=== PATIENT | female | born 1995 | race Caucasian/White ===

== ENCOUNTER → 2019-05-03 | Outpatient (CLI) | payer OTHER, SELFPAY ==
[2019-05-03 09:42] VITALS: BMI 29.3
[2019-05-05 12:42] LABS: HPV Reflexed? NOT INDICATED
== END | disposition home or self-care (01) ==
LOC: LABSPEC 13:23
PROVIDERS: Referring Provider Nurse Practitioner Women's Health; Visit Provider Nurse Practitioner Women's Health
DX: Z12.4 Encounter for screening for malignant neoplasm of cervix (principal)
CPT/HCPCS: 87624; 88175; G0145

== ENCOUNTER → 2019-08-17 | Outpatient (CLI) | payer OTHER, SELFPAY ==
[2019-08-17 13:22] VITALS: BMI 29.3
[2019-08-17 14:55] LABS: Absolute Lymphocyte Count 1.94 X10^3/uL (0.83-4.51); Absolute Neutrophil Count 5.6 X10^3/uL (2.0-7.7); Basophil# 0.02 X10^3/uL; Basophil% 0.2 % (0-1); Eosinophils% 1.2 % (0-5); Hematocrit 38.1 % (37-47); Hemoglobin 13.4 g/dL (12.0-15.0); Lymphocyte # 1.94 X10^3/ul (4.0); Lymphocyte % 23.2 % (19-41); Mean Corp Hgb Conc 35.2 g/dL (32-36); Mean Corpuscular Hgb 30.5 pg (27.0-32.0); Mean Corpuscular Volume 86.8 fL (81-99); Mean Platelet Vol. 10.4 fl (6.2-12.0); Monocyte# 0.68 X10^3/uL; Monocyte% 8.1 % (0-10); NRBC Flagged by Analyzer 0 % (0-5); Neutrophil # 5.57 X10^3/uL (2.7-7.7); Neutrophil % 66.8 % (47-70); Platelet Count 353 K/mm3 (150-450); RBC Distribution Width CV 11.9 % (11.6-14.6); RBC Distribution Width SD 38.5 fl (35.1-43.9); Red Blood Count 4.39 M/mm3 (4.2-5.4); White Blood Count 8.4 K/mm3 (4.4-11.0)
[2019-08-17 17:55] LABS: Chlamydia Trachomatis by PCR Negative (Negative); Neisserai gonorrhoeae by PCR Negative (Negative); Probe Check PASS; Sample Adequacy Control PASS; Specimen Processing Control PASS
[2019-08-18 02:21] LABS: Rapid Plasmin Reagin (RPR) NONREACTIVE (NONREACTIVE)
[2019-08-18 11:06] LABS: HIV - WCH Non-Reactive (Nonreactive); Hepatitis B Surface Antigen Non-Reactive (Nonreactive); Rubella IgG 194.8 IU/mL
== END | disposition home or self-care (01) ==
LOC: LAB 14:13
PROVIDERS: Referring Provider Nurse Practitioner Women's Health; Visit Provider Nurse Practitioner Women's Health
DX: Z34.90 Encounter for supervision of normal pregnancy, unspecified, unspecified trimester (principal)
CPT/HCPCS: 36415; 85025; 86592; 86703; 86762; 86850; 86900; 86901; 87086; 87088; 87340; 87491; 87591

== ENCOUNTER → 2019-09-13 14:00 | Outpatient (CLI) | payer OTHER, SELFPAY ==
[2019-09-13 13:36] VITALS: BMI 29.3
== END ==
PROVIDERS: Referring Provider Nurse Practitioner Women's Health; Visit Provider Nurse Practitioner Women's Health
DX: Z34.81 Encounter for supervision of other normal pregnancy, first trimester (principal)
CPT/HCPCS: 36415

== ENCOUNTER → 2019-11-04 16:32 | Outpatient (CLI) | payer OTHER, SELFPAY ==
[2019-11-04 15:38] VITALS: BMI 31.7
== END ==
PROVIDERS: Referring Provider Obstetrics & Gynecology; Visit Provider Obstetrics & Gynecology
DX: O26.899 Other specified pregnancy related conditions, unspecified trimester (principal); R10.9 Unspecified abdominal pain; Z3A.00 Weeks of gestation of pregnancy not specified
CPT/HCPCS: 87086; 87088

== ENCOUNTER → 2019-11-11 12:00 | Outpatient (CLI) | payer OTHER, SELFPAY ==
[2019-10-10 08:23] VITALS: BMI 29.3
[2019-11-04 15:38] VITALS: BMI 31.7
--- NOTE | 2019-11-11 12:01 | US_ITS ---
STUDY: SECOND AND THIRD TRIMESTER OBSTETRICAL ULTRASOUND REASON FOR EXAM: Female, 24 years old anatomy LMP: June 26, 2019. TECHNIQUE: Transabdominal TECHNICAL QUALITY: Adequate. PRIOR ULTRASOUND: None. FINDINGS: There is a single intrauterine fetus. The fetus is in a breech presentation. There is demonstrated cardiac activity with a heart rate of 137 bpm. There is a normal amniotic fluid volume. The largest amniotic fluid pocket measures 8.5 cm x 3.7 cm. The amniotic fluid index (TASHA) is is within normal limits. The placenta is anterior in location and is not low lying. There are Grade 0 placental changes. The cervix measures 4.6 cm in length. The bilateral adnexal regions are normal. BIOMETRY: BPD: 4.51 cm: 19 weeks, 4 days HC: 17.96 cm: 20 weeks, 2 days AC: 16.23 cm: 21 weeks, 2 days FL: 3.2 cm: 19 weeks, 6 days CI: 70% FL/BPD: 71% FL/HC: FL/AC: 20% HC/AC: 1.11 age by current US: 20 weeks, 0 days. IGNACIO by current US: March 30, 2020. Estimated weight: 366 grams, +/- 54 grams, 89 %. Age by LMP: 19 weeks, 4 days. IGNACIO by LMP: April 02, 2020. ANATOMY: Gender: Male Cranium: Normal lateral ventricles. Normal choroid plexus. Normal cerebellum. Normal cisterna magna. Normal face, nose and lips. Chest: Normal 4-chamber heart. Abdomen/Pelvis: Normal diaphragm. Normal stomach. Normal abdominal wall. Normal cord insertion. Normal 3 vessel cord. Left renal fullness. This measures 2 mm. This is within normal limits. Normal bladder. Spine: Normal cervical spine. Normal thoracic spine. Normal lumbar spine. Normal sacrum. Extremities: Normal bilateral upper extremities. Normal bilateral lower extremities. US/OB Anatomy Scan IMPRESSION: Single live intrauterine gestation with a mean gestational age of 20 weeks. Electronically Signed: Corby Murillo at 8:33 EST , Service support ,
== END ==
PROVIDERS: Referring Provider Obstetrics & Gynecology; Visit Provider Obstetrics & Gynecology
DX: Z34.90 Encounter for supervision of normal pregnancy, unspecified, unspecified trimester (principal)
CPT/HCPCS: 76805

== ENCOUNTER → 2020-01-02 11:42 | Outpatient (CLI) | payer OTHER, SELFPAY ==
[2020-01-02 11:07] VITALS: BMI 31.7
[2020-01-02 12:32] LABS: Absolute Lymphocyte Count 1.47 X10^3/uL (0.83-4.51); Absolute Neutrophil Count 8.2 X10^3/uL (2.0-7.7); Basophil# 0.01 X10^3/uL; Basophil% 0.1 % (0-1); Eosinophil# 0.08 X10^3/uL; Eosinophils% 0.8 % (0-5); Hematocrit 31.9 % (37-47); Hemoglobin 10.6 g/dL (12.0-15.0); Lymphocyte # 1.47 X10^3/ul (4.0); Lymphocyte % 14.1 % (19-41); Mean Corp Hgb Conc 33.2 g/dL (32-36); Mean Corpuscular Hgb 29.8 pg (27.0-32.0); Mean Corpuscular Volume 89.6 fL (81-99); Mean Platelet Vol. 10.5 fl (6.2-12.0); Monocyte# 0.54 X10^3/uL; Monocyte% 5.2 % (0-10); NRBC Flagged by Analyzer 0 % (0-5); Neutrophil # 8.23 X10^3/uL (2.7-7.7); Platelet Count 267 K/mm3 (150-450); RBC Distribution Width CV 12.3 % (11.6-14.6); RBC Distribution Width SD 40.4 fl (35.1-43.9); Red Blood Count 3.56 M/mm3 (4.2-5.4); White Blood Count 10.4 K/mm3 (4.4-11.0)
[2020-01-02 13:02] LABS: Glucose Challenge Gest 1H 50g 130 mg/dL (70-140)
== END ==
PROVIDERS: Referring Provider Obstetrics & Gynecology; Visit Provider Obstetrics & Gynecology
DX: Z3A.27 27 weeks gestation of pregnancy (principal)
CPT/HCPCS: 36415; 82950; 85025

== ENCOUNTER → 2020-02-08 12:18 | Outpatient (CLI) | payer OTHER, SELFPAY ==
[2020-02-08 10:59] VITALS: BMI 31.7
[2020-02-08 12:34] LABS: Absolute Lymphocyte Count 1.62 X10^3/uL (0.83-4.51); Absolute Neutrophil Count 8.6 X10^3/uL (2.0-7.7); Basophil# 0.02 X10^3/uL; Basophil% 0.2 % (0-1); Eosinophil# 0.08 X10^3/uL; Eosinophils% 0.7 % (0-5); Hematocrit 34.3 % (37-47); Hemoglobin 11.6 g/dL (12.0-15.0); Lymphocyte # 1.62 X10^3/ul (4.0); Lymphocyte % 14.2 % (19-41); Mean Corp Hgb Conc 33.8 g/dL (32-36); Mean Corpuscular Hgb 30.5 pg (27.0-32.0); Mean Corpuscular Volume 90.3 fL (81-99); Mean Platelet Vol. 10.5 fl (6.2-12.0); Monocyte% 7.9 % (0-10); NRBC Flagged by Analyzer 0 % (0-5); Neutrophil # 8.61 X10^3/uL (2.7-7.7); Neutrophil % 75.7 % (47-70); Platelet Count 289 K/mm3 (150-450); RBC Distribution Width CV 13.1 % (11.6-14.6); RBC Distribution Width SD 42.9 fl (35.1-43.9); White Blood Count 11.4 K/mm3 (4.4-11.0)
== END ==
PROVIDERS: Referring Provider Obstetrics & Gynecology; Visit Provider Obstetrics & Gynecology
DX: O99.019 Anemia complicating pregnancy, unspecified trimester (principal); Z3A.00 Weeks of gestation of pregnancy not specified
CPT/HCPCS: 36415; 85025

== ENCOUNTER → 2020-03-09 12:20 | Outpatient (CLI) | payer OTHER, SELFPAY ==
[2020-03-09 12:05] VITALS: BMI 31.7
[2020-03-09 12:49] LABS: Absolute Lymphocyte Count 1.43 X10^3/uL (0.83-4.51); Absolute Neutrophil Count 6.8 X10^3/uL (2.0-7.7); Basophil# 0.01 X10^3/uL; Basophil% 0.1 % (0-1); Eosinophil# 0.07 X10^3/uL; Eosinophils% 0.8 % (0-5); Hematocrit 35.6 % (37-47); Hemoglobin 11.8 g/dL (12.0-15.0); Lymphocyte # 1.43 X10^3/ul (4.0); Lymphocyte % 15.7 % (19-41); Mean Corp Hgb Conc 33.1 g/dL (32-36); Mean Corpuscular Hgb 29.7 pg (27.0-32.0); Mean Corpuscular Volume 89.7 fL (81-99); Mean Platelet Vol. 10.6 fl (6.2-12.0); Monocyte# 0.67 X10^3/uL; Monocyte% 7.4 % (0-10); NRBC Flagged by Analyzer 0 % (0-5); Neutrophil # 6.83 X10^3/uL (2.7-7.7); Platelet Count 281 K/mm3 (150-450); RBC Distribution Width CV 13.2 % (11.6-14.6); RBC Distribution Width SD 43.3 fl (35.1-43.9); Red Blood Count 3.97 M/mm3 (4.2-5.4); White Blood Count 9.1 K/mm3 (4.4-11.0)
== END ==
PROVIDERS: Referring Provider Obstetrics & Gynecology; Visit Provider Obstetrics & Gynecology
DX: O99.019 Anemia complicating pregnancy, unspecified trimester (principal); Z3A.00 Weeks of gestation of pregnancy not specified
CPT/HCPCS: 36415; 85025; 87081

== ENCOUNTER 2020-04-01 07:40 | Outpatient (CLI) | payer OTHER, SELFPAY ==
[2020-03-29 10:54] VITALS: BMI 37.2
--- NOTE | 2020-04-01 14:35 | OB.TRI.PN ---
Progress Notes Date of Service: 04/01/20 Progress Note: Patient presents for triage evaluation secondary to false labor FHT: 130 moderate variability reactive no decelerations category I tracing [place]: 4-8min contractions Assessment and plan: False labor no cervical change reactive NST, reassuring maternal and status patient discharged to home to follow-up scheduled. See problem list details for additional plan information. Multi Select Codes - Urinary/Genital Urinary/Genital CPT Codes: 50337-14 non-stress test Interp
[2020-04-01 18:15] VITALS: BP 137/86; PULSE 83
== END 2020-04-01 11:20 | disposition home or self-care (01) ==
LOC: WPOUT 08:15 → OBT 08:15
PROVIDERS: Visit Provider Obstetrics & Gynecology
DX: O47.9 False labor, unspecified (principal)
CPT/HCPCS: 59025; 59050; 99218; G0378

== ENCOUNTER 2020-04-01 18:20 | Inpatient (IN) | payer OTHER, SELFPAY ==
[2020-02-08 10:59] VITALS: BMI 31.7
[2020-03-29 10:54] VITALS: BMI 37.2
[2020-04-01] VITALS (27 sets, daily range): BP systolic 106–143; BP diastolic 58–84; PULSE 61–100; TEMP 36.2–37.1; O2SAT 96–100; BMI 37.2
[2020-04-01] MEDS: Lactated Ringers 1,000 ML 999 ML IV (18:35)
[2020-04-01 19:07] LABS: Absolute Lymphocyte Count 1.07 X10^3/uL (0.83-4.51); Absolute Neutrophil Count 13.6 X10^3/uL (2.0-7.7); Basophil# 0.02 X10^3/uL; Basophil% 0.1 % (0-1); Eosinophil# 0.01 X10^3/uL; Eosinophils% 0.1 % (0-5); Hematocrit 36.1 % (37-47); Hemoglobin 12.2 g/dL (12.0-15.0); Lymphocyte # 1.07 X10^3/ul (4.0); Lymphocyte % 6.8 % (19-41); Mean Corp Hgb Conc 33.8 g/dL (32-36); Mean Corpuscular Hgb 30.3 pg (27.0-32.0); Mean Corpuscular Volume 89.6 fL (81-99); Mean Platelet Vol. 11.1 fl (6.2-12.0); Monocyte# 0.86 X10^3/uL; Monocyte% 5.5 % (0-10); NRBC Flagged by Analyzer 0 % (0-5); Platelet Count 281 K/mm3 (150-450); RBC Distribution Width CV 13.2 % (11.6-14.6); RBC Distribution Width SD 43.3 fl (35.1-43.9); Red Blood Count 4.03 M/mm3 (4.2-5.4); White Blood Count 15.6 K/mm3 (4.4-11.0)
[2020-04-01] MEDS: fentaNYL-bupivacaine (epidural) 100 ML BAG EPIDURAL (19:47)
[2020-04-01] MEDS: Lactated Ringers 1,000 ML 200 ML IV (19:47)
[2020-04-01 20:24] LABS: Probe Check PASS; Specimen Processing Control PASS
[2020-04-02] VITALS (62 sets, daily range): BP systolic 100–142; BP diastolic 56–85; PULSE 69–108; RESP 16–18; TEMP 36.4–37.6; O2SAT 90–100
[2020-04-02] MEDS: Lactated Ringers 1,000 ML 200 ML IV ×2 (00:23→05:07)
[2020-04-02] MEDS: fentaNYL-bupivacaine (epidural) 100 ML BAG EPIDURAL ×2 (00:24→04:21)
[2020-04-02] MEDS: Lactated Ringers 500 ML 999 ML IV (01:12)
[2020-04-02] MEDS: Ondansetron 4 MG/2 ML Vial IV (02:29)
--- NOTE | 2020-04-02 05:30 | PCM.HP.OB ---
- Problem List (1) Active labor at term Status: Acute (2) Anemia affecting Status: Acute Qualifiers: Comment: iron, repeat cbc NL (3) Status: Acute Qualifiers: Comment: Declines carrier. NIPT- low risk male. declines afp screen. Anatomy US normal (4) Supervision of normal first Status: Acute Qualifiers: Comment: PRR IGNACIO 04/02/20 miriam Marte Spouse:Rick History Date of Admission: 04/02/20 Final IGNACIO: 04/02/20 Gestational age: 40 Weeks and 0 Days History of this : This is a 24 year-old, at 39 weeks gestational age presents IAL 4 cm dilated with cervical change from this morning. she denies any vb or lof, wants an epidural Medical History: Medical History (Last Reviewed 03/29/20 @ 10:54 by Anuradha Weldon) No significant medical problems Surgical History: Surgical History (Last Reviewed 03/29/20 @ 10:54 by Anuradha Weldon) No significant past surgical history Allergies No Known Allergies Allergy (Verified 04/01/20 11:56) Home Medications: Home Medications calcium carbonate 600 mg calcium (1,500 mg) tablet 600 mg PO DAILY 08/17/19 omega-3 fatty acids 1,000 mg capsule 1,000 mg PO DAILY 08/17/19 vitamin#30 30 mg iron-10 mg iron-folic acid 1 mg-omg3 capsule 1 cap PO DAILY cap 08/17/19 ferrous sulfate 325 mg (65 mg iron) tablet 325 mg PO DAILY 02/08/20 Nystatin/Triamcin [Nystatin-Triamcinolone Cream] 1 applic TOPICAL TID 04/01/20 Smoking Status: Never smoker NST - FHR Rate Baby A Baseline: 130 Variability:: Moderate Accelerations:: 15 x 15 Decelerations:: None NST Reactive:: Yes FHR Category:: Category I Uterine Activity:: q 3-5 History Past Pregnancies: Past Pregnancies Delivery Date Name GA/ Weeks Outcome Route Wt Sex Labor Length Anesthesia Delivery Location Provider FOB Labs: Mom's Labs & Results 04/01/20 04/01/20 04/01/20 18:40 18:40 19:15 WBC 15.6 H RBC 4.03 L Hgb 12.2 Hct 36.1 L MCV 89.6 MCH 30.3 MCHC 33.8 RDW Std Deviation 43.3 RDW Coeff of Judith 13.2 Plt Count 281 MPV 11.1 Immature Gran % (Auto) 0.500 Neut % (Auto) 87.0 H Lymph % (Auto) 6.8 L Amelia % (Auto) 5.5 Eos % (Auto) 0.1 Baso % (Auto) 0.1 Absolute Neuts (auto) 13.6 H Absolute Lymphs (auto) 1.07 Nucleated RBC % 0 COVID-19 (ARY) Negative Blood Type O POSITIVE Antibody Screen NEGATIVE Course Did the patient receive Yes care? Labs Blood Type: O RH: POSITIVE RPR/VDRL/Syphilis Nonreactive Rubella status Immune HbSAg Negative Date Done: 08/17/19 Chlamydia Negative Gonorrhea Negative HIV/AIDS Non-Reactive Group B Strep: Negative Current Obstetrical History Gestational Diabetes No Incompetent Cervix No Infertility No IUGR No Macrosomia No Hypertension/Pre-eclampsia No Placenta Previa/Abruption No PTL/PROM No Uterine anomaly No Oligohydramnios No Polyhydramnios No Multiple gestation No Past Medical History Asthma No Diabetes No Hypertension No Heart disease No Mitral valve prolapse No Neurologic/Seizure disorder/ No Migraines Kidney disease No Liver disease No Varicosities No Clotting disorders/Hx of DVT No Thyroid Dysfunction No Other medical diseases No Psychiatric disorders No Major trauma No Abnormal PAP smear No Sleep apnea No Mammogram in the last 2 years No Social History Marital Status: Alleged father Rick Hx Smoking No Smoking Status Never smoker How long have you used n/a substances (years)? Expected Infant Delivery Method: Spontaneous Vaginal Review of Systems Constitutional: Denies: Fever, Malaise Eyes: Denies: Blurred vision, Vision Change HEENT: Denies: Head Aches, Visual Changes Cardiovascular: Denies: Chest Pain, Palpitations Respiratory: Denies: Cough, Shortness of Breath, Wheezing Gastrointestinal: Denies: Abdominal Pain, Diarrhea, Nausea, Vomiting Genitourinary: Denies: Dysuria, Hematuria Musculoskeletal: Denies: Joint Pain, Muscle pain Skin: Denies: Lesions, Rash Neurological: Denies: Blurred vision, Focal weakness, Headaches Psychiatric: Denies: Anxiety, Depression Endocrine: Denies: Heat/ Cold Intolerance Hematologic/ Lymphatic: Denies: Easy Bruising, Easy Bleeding Physical Exam Vitals: Vital Signs Temp Pulse BP Pulse Ox 98.2 F 83 100/64 97 04/02/20 01:50 04/02/20 05:12 04/02/20 05:12 04/02/20 05:12 General: Alert, Cooperative, No apparent distress HEENT: Atraumatic, Normocephalic. Negative for: Thyromegaly, Lymphadenopathy Cardiovascular: Regular rate Lungs: Normal air movement Abdomen: Soft, Non Tender, Gravid Neurological: Deep Tendon Reflexes 2+/4 and Symmetrical, Neuro grossly intact. Negative for: Clonus [employer]: Normal external genitalia. Negative for: Vulvar lesions Estimated gestational size: Appropriate for gestational size Presentation: Cephalic Assessment/Plan All Active Problems (Last Reviewed 03/29/20 @ 10:54 by Anuradha Weldon) Active labor at term (Acute) Anemia affecting (Acute) (Acute) Supervision of normal first (Acute) This is a 24 year-old, at 39 weeks gestational age presents IAL. Patient presents IAL, plan expectant management for , Pitocin/AROM if needed. Pain management: Plans epidural. GBS negative Management of any complications: None I have reviewed the [facility] and made any clinically relevant updates.
[2020-04-02] MEDS: Oxytocin 30 units/NS 500 ml 30 UNITS/500 ML IV.SOLN IV (05:33)
--- NOTE | 2020-04-02 05:33 | PCM.PN.BLA ---
Progress Note heart tones baseline 130 minimal to moderate variability reactive intermittent late decelerations. Overall reassuring. Anterior cervical lip swollen and reduced easily behind the head. Patient is 9 cm and +1 station. Contractions every 4 to 5 minutes. Plan starting Pitocin STROKE Vital Signs/Narrative: Vital Signs Temp Pulse BP Pulse Ox 04/02/20 05:12 83 100/64 97 04/02/20 04:21 85 117/72 04/02/20 04:09 78 116/69 04/02/20 03:38 80 117/71 04/02/20 03:02 88 130/78 H 04/02/20 02:58 86 131/82 H 04/02/20 02:55 87 128/77 H 04/02/20 02:48 92 125/77 H 04/02/20 02:43 95 140/66 H 04/02/20 02:38 96 132/75 H 04/02/20 02:32 107 H 132/82 H 04/02/20 01:51 75 113/65 04/02/20 01:50 98.2 F 04/02/20 01:46 80 100 04/02/20 01:41 85 99 04/02/20 01:36 83 99
[2020-04-02] MEDS: Oxytocin 30 units/NS 500 ml 30 UNITS/500 ML IV.SOLN 334 UNITS IV (07:02)
--- NOTE | 2020-04-02 08:01 | PCM.OPRPT ---
Problem List (1) Active labor at term Status: Acute (2) Anemia affecting Status: Acute Qualifiers: Comment: iron, repeat cbc NL (3) Status: Acute Qualifiers: Comment: Declines carrier. NIPT- low risk male. declines afp screen. Anatomy US normal (4) Supervision of normal first Status: Acute Qualifiers: Comment: PRR IGNACIO 04/02/20 miriam Marte Spouse:Rick Vaginal Delivery Maternal Presentation: Active Labor 40 weeks IAL Final IGNACIO: 04/02/20 Gestational age: 40 Weeks and 0 Days Date of Procedure: 04/02/20 Pre-Operative Diagnosis: ial Post-Operative Diagnosis: same Surgery/ Procedure Performed: Spontaneous Vaginal Delivery Type of Anesthesia: None Description of Procedure: Patient began pushing and delivered the head in the [VIGNESH] presentation. The head was delivered atraumatically. The anterior and posterior shoulders delivered without complication followed by the rest of the infant and the infant was placed on the maternal abdomen. Delayed cord clamping was employed for approximately 60 seconds. Cord was clamped and cut and gentle traction was applied to the cord and the placenta delivered spontaneously immediately following it was noted to be intact with three-vessel cord. The perineum and vagina were inspected and noted to have a second degree perineal laceration that was repaired in the usual fashion with 3-0 Vicryl Rapide. EBL was 300 cc. Patient and infant tolerated delivery well. Presentation: VIGNESH Placental Delivery Description: Spontaneous Placenta Disposition: [facility] Cord Entanglement: None Estimated Blood Loss: 300 Infant A gender: Male Episiotomy Description: None Laceration: Perineal Extension/lac, 2nd degree Medications given after delivery: IV Pitocin Complications: None Multi Select Codes - Urinary/Genital Urinary/Genital CPT Codes: 56875 Vaginal Delivery [facility]
[2020-04-02] MEDS: Naproxen 250 MG Tablet 500 MG PO ×2 (09:23→17:00)
[2020-04-02] MEDS: Acetaminophen 500 MG Tablet 1000 MG PO (13:45)
[2020-04-02] MEDS: Senna/Docusate Sodium 1 Tablet PO (17:00)
[2020-04-02] MEDS: Dibucaine 30 GM Tube 1 APPLIC TOPICAL (18:50)
[2020-04-03] MEDS: Acetaminophen 500 MG Tablet 1000 MG PO ×2 (00:19→09:53)
[2020-04-03 00:20] VITALS: BP 124/72; PULSE 82; RESP 18; TEMP 36.2
[2020-04-03] MEDS: Senna/Docusate Sodium 1 Tablet PO (05:40)
[2020-04-03] MEDS: Naproxen 250 MG Tablet 500 MG PO (05:40)
[2020-04-03 06:00] VITALS: BP 128/83; PULSE 87; RESP 18; TEMP 36.5
--- NOTE | 2020-04-03 07:47 | PCM.PN.OB ---
Patient Problems: Active and Suspected Problems (Last Reviewed 03/29/20 @ 10:54 by Anuradha Weldon) Active labor at term (Acute) Subjective: Doing well, no complaints.Pain controlled. Denies CP, SOB, N,V. Ambulating well, tolerating po. Lochia moderate, going well. - Physical Exam Vitals/I&O's: Vital Signs Temp Pulse Resp BP Pulse Ox 97.7 F L 87 18 128/83 H 98 04/03/20 06:00 04/03/20 06:00 04/03/20 06:00 04/03/20 06:00 04/02/20 16:55 Oxygen Delivery Method Room Air Weight: 217 lb Body Mass Index (BMI) 37.2 Intake and Output for Last 24 Hours 04/01/20 04/02/20 04/03/20 23:59 23:59 23:59 Intake Total 1000 / 1000 3704.34 / 3704.34 Output Total 1475 / 1475 Balance 1000 / 1000 2229.34 / 2229.34 General: Alert, Oriented x3 Abdomen: Soft, Non Tender, - - FF below U Current Medications Acetaminophen (Tylenol) 1,000 mg PO Q8H PRN PRN PRN Reason: Pain Score 1-3/10 Last Admin: 04/03/20 00:19 Dose: 1,000 mg Documented by: Bisacodyl (Dulcolax) 10 mg RECTAL UD PRN PRN Reason: If no BM Dibucaine (Dibucaine) 1 applic TOPICAL TID PRN PRN; Protocol PRN Reason: Discomfort Last Admin: 04/02/20 18:50 Dose: 1 applicatio Documented by: Hydrocortisone (Hytone) 1 applic TOPICAL TID PRN PRN; Protocol PRN Reason: Discomfort Methylergonovine Maleate (Methergine) 0.2 mg IM X1 PRN PRN Reason: Excess bleeding/uterine atony Naproxen (Naprosyn) 500 mg PO Q8H PRN PRN PRN Reason: Pain Score 1-3/10 Last Admin: 04/03/20 05:40 Dose: 500 mg Documented by: Ondansetron HCl (Zofran) 4 mg IV Q4H PRN PRN PRN Reason: Nausea Oxycodone HCl (Oxyir) 5 - 10 mg PO Q4H PRN PRN PRN Reason: Pain Score 4-10/10 Senna/Docusate Sodium (Senokot-S, Susie-Colace) 1 - 2 tablet PO DAILY PRN PRN PRN Reason: Constipation Last Admin: 04/03/20 05:40 Dose: 2 tablet Documented by: Simethicone (Mylicon) 80 mg PO PCHS PRN PRN Reason: Indigestion/Stomach pain Sodium Chloride () 5 - 15 ml IV UD PRN PRN Reason: SALINE FLUSH Medical Necessity - Tobacco Use Smoking Status: Never smoker Assessment/Plan All Active Problems (Last Reviewed 03/29/20 @ 10:54 by Anuradha Weldon) Active labor at term (Acute) Anemia affecting (Acute) (Acute) Supervision of normal first (Acute) s/p PPD # 1 1. routine post delivery care 2. breast feeding- support given 3. rh positive 4. rubella immune 5. 2nd lac:enc stool softener 6. Home today
--- NOTE | 2020-04-03 07:48 | DCINST_ITS ---
Additional Instructions: If you experience any of the following, contact your healthcare provider. * Bleeding that soaks a pad every hour for 2 hours * Fever 100.4 or higher * Unrelieved incision or abdominal pain * Swelling, redness, discharge or bleeding from your incision or episiotomy site * Your incision begins to separate * Problems urinating (including inability to urinate or burning while urinating). * Visual changes * Severe headache * Flu-like symptoms * Pain or redness in one of both of your breasts * Pain, warmth, tenderness or swelling in your legs, especially the calf area * Frequent nausea and vomiting * Symptoms of depression or anxiety If you experience any of the following, call 911 or go to the nearest Emergency Room. * Chest pain * Problems breathing * Seizure activity * Partial or complete paralysis of a body part, slurred speech, weakness or drooping of the face, or a sudden inability to walk or hold your balance Allergies/Adverse Reactions: Allergies No Known Allergies Allergy (Verified 04/01/20 11:56) Medications to take at Discharge calcium carbonate 600 mg calcium (1,500 mg) tablet 600 mg PO DAILY 08/17/19 omega-3 fatty acids 1,000 mg capsule 1,000 mg PO DAILY 08/17/19 vitamin#30 30 mg iron-10 mg iron-folic acid 1 mg-omg3 capsule 1 cap PO DAILY cap 08/17/19 ferrous sulfate 325 mg (65 mg iron) tablet 325 mg PO DAILY 02/08/20 Nystatin/Triamcin [Nystatin-Triamcinolone Cream] 1 applic TOPICAL TID 04/01/20 Primary Care Physician: Care Physician,No Primary [Primary Care Provider] - Test Results: Test results from this visit will be discussed in further detail at your follow- up appointment, if applicable.
--- NOTE | 2020-04-03 07:48 | PCM.DCVAG ---
Additional Instructions: If you experience any of the following, contact your healthcare provider. Bleeding that soaks a pad every hour for 2 hours Fever 100.4 or higher Unrelieved incision or abdominal pain Swelling, redness, discharge or bleeding from your incision or episiotomy site Your incision begins to separate Problems urinating (including inability to urinate or burning while urinating). Visual changes Severe headache Flu-like symptoms Pain or redness in one of both of your breasts Pain, warmth, tenderness or swelling in your legs, especially the calf area Frequent nausea and vomiting Symptoms of depression or anxiety If you experience any of the following, call 911 or go to the nearest Emergency Room. Chest pain Problems breathing Seizure activity Partial or complete paralysis of a body part, slurred speech, weakness or drooping of the face, or a sudden inability to walk or hold your balance Allergies/Adverse Reactions: Allergies No Known Allergies Allergy (Verified 04/01/20 11:56) Medications to take at Discharge calcium carbonate 600 mg calcium (1,500 mg) tablet 600 mg PO DAILY 08/17/19 omega-3 fatty acids 1,000 mg capsule 1,000 mg PO DAILY 08/17/19 vitamin#30 30 mg iron-10 mg iron-folic acid 1 mg-omg3 capsule 1 cap PO DAILY cap 08/17/19 ferrous sulfate 325 mg (65 mg iron) tablet 325 mg PO DAILY 02/08/20 Nystatin/Triamcin [Nystatin-Triamcinolone Cream] 1 applic TOPICAL TID 04/01/20 Primary Care Physician: Care Physician,No Primary [Primary Care Provider] - Test Results: Test results from this visit will be discussed in further detail at your follow-up appointment, if applicable.
[2020-04-03 09:23] VITALS: BP 126/86; PULSE 72; RESP 16; TEMP 36.9
[2020-04-03 14:54] VITALS: BP 124/84; PULSE 75; RESP 16; TEMP 36.5
== END 2020-04-03 15:20 | disposition home or self-care (01) | DRG 807 ==
PROVIDERS: Admitting Provider Obstetrics & Gynecology; Referring Provider Obstetrics & Gynecology; Visit Provider Obstetrics & Gynecology
DX: O99.02 Anemia complicating childbirth (principal); D64.9 Anemia, unspecified; O70.1 Second degree perineal laceration during delivery; O76 Abnormality in fetal heart rate and rhythm complicating labor and delivery; Z3A.40 40 weeks gestation of pregnancy; Z37.0 Single live birth
CPT/HCPCS: 59025; 59050; 85025; 86850; 86900; 86901; 87635; 99218; G2023; J7120; G0378; J2405; U0003

== ENCOUNTER → 2020-04-04 | Outpatient (CLI) | payer OTHER, SELFPAY ==
[2020-04-01 18:28] VITALS: BMI 37.2
[2020-04-04 13:55] LABS: Absolute Lymphocyte Count 1.25 X10^3/uL (0.83-4.51); Absolute Neutrophil Count 10.4 X10^3/uL (2.0-7.7); Basophil# 0.03 X10^3/uL; Basophil% 0.2 % (0-1); Eosinophil# 0.05 X10^3/uL; Eosinophils% 0.4 % (0-5); Hematocrit 29.6 % (37-47); Hemoglobin 9.4 g/dL (12.0-15.0); Lymphocyte # 1.25 X10^3/ul (4.0); Lymphocyte % 9.8 % (19-41); Mean Corp Hgb Conc 31.8 g/dL (32-36); Mean Corpuscular Hgb 30.4 pg (27.0-32.0); Mean Corpuscular Volume 95.8 fL (81-99); Mean Platelet Vol. 10.7 fl (6.2-12.0); Monocyte# 0.93 X10^3/uL; Monocyte% 7.3 % (0-10); NRBC Flagged by Analyzer 0 % (0-5); Neutrophil # 10.43 X10^3/uL (2.7-7.7); Neutrophil % 81.6 % (47-70); Platelet Count 300 K/mm3 (150-450); RBC Distribution Width CV 13.6 % (11.6-14.6); RBC Distribution Width SD 47.5 fl (35.1-43.9); Red Blood Count 3.09 M/mm3 (4.2-5.4); White Blood Count 12.8 K/mm3 (4.4-11.0)
[2020-04-04 14:12] LABS: ALB/GLOB Ratio 0.7 RATIO (0.9-2.4); AST(SGOT) 25 U/L (15-37); Alanine Aminotransfer ALT/SGPT 14 U/L (13-56); Albumin, Serum 2.6 g/dL (3.2-5.0); Alkaline Phosphatase 119 U/L (45-117); Anion Gap 6 (5-15); BUN 8 mg/dL (7-18); Calcium,Total 9.4 mg/dL (8.5-10.1); Chloride 110 mmol/L (98-107); Creatinine, Serum 0.67 mg/dL (0.55-1.02); EST Glomerular Filtration Rate 114 mL/min (>60); Est Glom Filt Rate - Afr Amer 138 mL/min (>60); Globulin 3.9 g/dL (2.2-4.2); Glucose 84 mg/dL (74-106); Protein, Total 6.5 g/dL (6.4-8.2); Sodium Level 142 mmol/L (136-145)
[2020-04-04 14:46] LABS: Protein, Urine (Random) 12.1 mg/dL (<11.9); Protein:Creat Ratio 471 mg/g CRE (0-200)
== END | disposition home or self-care (01) ==
PROVIDERS: Nurse Practitioner Women's Health; Referring Provider Obstetrics & Gynecology; Visit Provider Obstetrics & Gynecology
DX: R03.0 Elevated blood-pressure reading, without diagnosis of hypertension (principal)
CPT/HCPCS: 36415; 80053; 82570; 84156; 85025

== ENCOUNTER → 2021-07-17 14:50 | Outpatient (CLI) | payer OTHER, SELFPAY ==
[2021-07-17 18:17] LABS: Thyroid Stim Hormone (TSH) 0.85 uIU/mL (0.358-3.74)
== END ==
PROVIDERS: PCP Family Medicine; Referring Provider Family Medicine; Visit Provider Nurse Practitioner Family
DX: Z13.29 Encounter for screening for other suspected endocrine disorder (principal)
CPT/HCPCS: 36415; 84443

== ENCOUNTER → 2022-05-26 | Outpatient (CLI) | payer OTHER, SELFPAY ==
[2022-05-30 13:25] LABS: HPV Reflexed? NOT INDICATED
== END | disposition home or self-care (01) ==
LOC: LABSPEC 13:28
PROVIDERS: PCP Family Medicine; Visit Provider Nurse Practitioner Women's Health
DX: Z12.4 Encounter for screening for malignant neoplasm of cervix (principal)
CPT/HCPCS: 88175; G0145

== ENCOUNTER → 2022-09-22 | Outpatient (CLI) | payer OTHER, SELFPAY ==
[2022-09-25 07:08] LABS: Chlamydia By Nucleic Acid AMP Negative (Negative)
[2022-09-25 10:36] LABS: Gonococcus By Nucleic Acid AMP Negative (Negative)
== END | disposition home or self-care (01) ==
LOC: LABSPEC 16:10
PROVIDERS: PCP Family Medicine; Visit Provider Obstetrics & Gynecology
DX: O09.91 Supervision of high risk pregnancy, unspecified, first trimester (principal); Z3A.09 9 weeks gestation of pregnancy
CPT/HCPCS: 87086; 87088; 87491; 87591

== ENCOUNTER → 2022-09-29 | Outpatient (CLI) | payer OTHER, SELFPAY ==
[2022-09-29 09:50] LABS: Protein, Urine (Random) 21.9 mg/dL (<11.9); Protein:Creat Ratio 159 mg/g CRE (0-200)
[2022-09-29 09:52] LABS: Absolute Lymphocyte Count 1.75 X10^3/uL (0.83-4.51); Absolute Neutrophil Count 4.7 X10^3/uL (2.0-7.7); Basophil# 0.02 X10^3/uL; Basophil% 0.3 % (0-1); Eosinophil# 0.12 X10^3/uL; Eosinophils% 1.7 % (0-5); Hematocrit 35.6 % (37-47); Hemoglobin 11.9 g/dL (12.0-15.0); Lymphocyte # 1.75 X10^3/ul (0.83-4.51); Lymphocyte % 24.2 % (19-41); Mean Corp Hgb Conc 33.4 g/dL (32-36); Mean Corpuscular Hgb 29.2 pg (27.0-32.0); Mean Corpuscular Volume 87.5 fL (81-99); Mean Platelet Vol. 10.2 fl (6.2-12.0); Monocyte# 0.59 X10^3/uL; Monocyte% 8.2 % (0-10); NRBC Flagged by Analyzer 0 % (0-5); Platelet Count 309 K/mm3 (150-450); RBC Distribution Width CV 12.8 % (11.6-14.6); RBC Distribution Width SD 40.1 fl (35.1-43.9); Red Blood Count 4.07 M/mm3 (4.2-5.4); White Blood Count 7.2 K/mm3 (4.4-11.0)
[2022-09-29 09:58] LABS: ALB/GLOB Ratio 0.9 RATIO (0.9-2.4); AST(SGOT) 11 U/L (15-37); Alanine Aminotransfer ALT/SGPT 13 U/L (13-56); Albumin, Serum 3.7 g/dL (3.2-5.0); Alkaline Phosphatase 36 U/L (45-117); Anion Gap 6 (5-15); BUN 9 mg/dL (7-18); BUN/Creat Ratio 17.8 RATIO (10-20); Calcium,Total 8.8 mg/dL (8.5-10.1); Chloride 106 mmol/L (98-107); Creatinine, Serum 0.51 mg/dL (0.55-1.02); EST Glomerular Filtration Rate 153 mL/min (>60); Est Glom Filt Rate - Afr Amer 186 mL/min (>60); Globulin 3.9 g/dL (2.2-4.2); Glucose 112 mg/dL (74-106); Glucose Challenge Gest 1H 50g 112 mg/dL (70-140); Potassium 3.9 mmol/L (3.5-5.1); Protein, Total 7.6 g/dL (6.4-8.2); Sodium Level 137 mmol/L (136-145)
[2022-09-29 10:08] LABS: Amphetamine Urine VISTA NEGATIVE (<1000 ng/mL); Barbiturate Urine VISTA NEGATIVE (< 200 ng/mL); Benzodiazepine Urine VISTA NEGATIVE (< 200 ng/mL); Cocaine Urine VISTA NEGATIVE (< 300 ng/mL); Ecstacy Urine VISTA NEGATIVE (< 500 ng/mL); Methadone Urine VISTA NEGATIVE (< 300 ng/mL); PCP Urine VISTA NEGATIVE (< 25 ng/mL); THC Urine VISTA NEGATIVE (< 50 ng/mL); Vista UDS pH Range 7
[2022-09-29 10:15] LABS: NATERA MAILED SPECIMEN
[2022-09-29 10:47] LABS: HIV - WCH Non-Reactive (Nonreactive); Hepatitis B Surface Antigen Non-Reactive (Nonreactive); Hepatitis C Antibody Non-Reactive (Nonreactive); Rubella IgG Reactive (Nonreactive); Syphilis Antibodies Non-reactive
== END | disposition home or self-care (01) ==
LOC: PAVLAB 08:59
PROVIDERS: PCP Family Medicine; Referring Provider Obstetrics & Gynecology; Visit Provider Obstetrics & Gynecology
DX: O14.95 Unspecified pre-eclampsia, complicating the puerperium (principal); Z3A.00 Weeks of gestation of pregnancy not specified
CPT/HCPCS: 36415; 80053; 80307; 82570; 82950; 84156; 85025; 86703; 86762; 86780; 86803; 86850; 86900; 86901; 87340

== ENCOUNTER → 2022-11-19 | Outpatient (CLI) | payer OTHER, SELFPAY | END | disposition home or self-care (01) | PROVIDERS: PCP Family Medicine; Referring Provider Registered Nurse; Visit Provider Registered Nurse | DX: Z36.9 Encounter for antenatal screening, unspecified (principal) | CPT/HCPCS: 36415 ==

== ENCOUNTER → 2022-12-10 | Outpatient (CLI) | payer OTHER, SELFPAY ==
--- NOTE | 2022-12-10 15:18 | US_ITS ---
STUDY: SECOND AND THIRD TRIMESTER OBSTETRICAL ULTRASOUND REASON FOR EXAM: Female, 27 years old . anatomy. LMP: July 20, 2022. TECHNIQUE: Transabdominal and Transvaginal TECHNICAL QUALITY: Adequate. PRIOR ULTRASOUND: None. FINDINGS: There is a single intrauterine fetus. The fetus is in a breech presentation. There is demonstrated cardiac activity with a heart rate of 144 bpm. There is a normal amniotic fluid volume. The largest amniotic fluid pocket measures 4.6 cm x 4.9 cm. The amniotic fluid index (TASHA) is within normal limits. The placenta is posterior in location and is not low lying. There are Grade 0 placental changes. The cervix measures 4.1 cm in length. The adnexal regions are not visualized. BIOMETRY: BPD: 4.98 cm: 21 weeks, 0 days HC: 18.47 cm: 20 weeks, 6 days AC: 16.36 cm: 21 weeks, 3 days FL: 3.47 cm: 21 weeks, 0 days CI: 77% FL/BPD: 69.8% FL/HC: FL/AC: 21.22% HC/AC: 1.13 age by current US: 20 weeks, 6 days. IGNACIO by current US: April 23, 2023. Estimated weight: 480 grams, +/- 61 grams, 84 %. Age by LMP: 20 weeks, 3 days. IGNACIO by LMP: April 26, 2023. ANATOMY: Gender: Male Cranium: Normal lateral ventricles. Normal choroid plexus. Normal cerebellum. Normal cisterna magna. Normal face, nose and lips. Chest: Normal 4-chamber heart. Abdomen/Pelvis: Normal diaphragm. Normal stomach. Normal abdominal wall. Normal cord insertion. Normal 3 vessel cord. Normal kidneys. Normal bladder. Spine: Normal cervical spine. Normal thoracic spine. Normal lumbar spine. Normal sacrum. Extremities: Normal bilateral upper extremities. Normal bilateral lower extremities. IMPRESSION: Single live uterine gestation with gestational age of 20 weeks and 6 days. Electronically Signed: Corby Murillo MD at 13:58 EST , STUDY: FIRST TRIMESTER OBSTETRICAL ULTRASOUND REASON FOR EXAM: Female, 27 years old. Cervical length measurement. LMP: July 20, 2022. TECHNIQUE: Transvaginal TECHNICAL QUALITY: Adequate. PRIOR ULTRASOUND: None. FINDINGS: Cervical length measures 4.1 cm. US/OB Anatomy Scan IMPRESSION: Cervical length measures 4.1 cm. Electronically Signed: Corby Murillo MD at 13:59 EST ,
--- NOTE | 2022-12-10 15:18 | US_ITS ---
STUDY: SECOND AND THIRD TRIMESTER OBSTETRICAL ULTRASOUND REASON FOR EXAM: Female, 27 years old . anatomy. LMP: July 20, 2022. TECHNIQUE: Transabdominal and Transvaginal TECHNICAL QUALITY: Adequate. PRIOR ULTRASOUND: None. FINDINGS: There is a single intrauterine fetus. The fetus is in a breech presentation. There is demonstrated cardiac activity with a heart rate of 144 bpm. There is a normal amniotic fluid volume. The largest amniotic fluid pocket measures 4.6 cm x 4.9 cm. The amniotic fluid index (TASHA) is within normal limits. The placenta is posterior in location and is not low lying. There are Grade 0 placental changes. The cervix measures 4.1 cm in length. The adnexal regions are not visualized. BIOMETRY: BPD: 4.98 cm: 21 weeks, 0 days HC: 18.47 cm: 20 weeks, 6 days AC: 16.36 cm: 21 weeks, 3 days FL: 3.47 cm: 21 weeks, 0 days CI: 77% FL/BPD: 69.8% FL/HC: FL/AC: 21.22% HC/AC: 1.13 age by current US: 20 weeks, 6 days. IGNACIO by current US: April 23, 2023. Estimated weight: 480 grams, +/- 61 grams, 84 %. Age by LMP: 20 weeks, 3 days. IGNACIO by LMP: April 26, 2023. ANATOMY: Gender: Male Cranium: Normal lateral ventricles. Normal choroid plexus. Normal cerebellum. Normal cisterna magna. Normal face, nose and lips. Chest: Normal 4-chamber heart. Abdomen/Pelvis: Normal diaphragm. Normal stomach. Normal abdominal wall. Normal cord insertion. Normal 3 vessel cord. Normal kidneys. Normal bladder. Spine: Normal cervical spine. Normal thoracic spine. Normal lumbar spine. Normal sacrum. Extremities: Normal bilateral upper extremities. Normal bilateral lower extremities. IMPRESSION: Single live uterine gestation with gestational age of 20 weeks and 6 days. Electronically Signed: Corby Murillo MD at 13:58 EST , STUDY: FIRST TRIMESTER OBSTETRICAL ULTRASOUND REASON FOR EXAM: Female, 27 years old. Cervical length measurement. LMP: July 20, 2022. TECHNIQUE: Transvaginal TECHNICAL QUALITY: Adequate. PRIOR ULTRASOUND: None. FINDINGS: Cervical length measures 4.1 cm. US/Transvaginal w/Preg US IMPRESSION: Cervical length measures 4.1 cm. Electronically Signed: Corby Murillo MD at 13:59 EST ,
== END | disposition home or self-care (01) ==
LOC: US 15:17
PROVIDERS: PCP Family Medicine; Referring Provider Obstetrics & Gynecology; Visit Provider Obstetrics & Gynecology
DX: O09.91 Supervision of high risk pregnancy, unspecified, first trimester (principal)
CPT/HCPCS: 76805; 76817

== ENCOUNTER → 2023-02-11 | Outpatient (CLI) | payer OTHER, SELFPAY ==
[2023-02-11 07:14] LABS: Absolute Lymphocyte Count 2.06 X10^3/uL (0.83-4.51); Absolute Neutrophil Count 7.9 X10^3/uL (2.0-7.7); Basophil# 0.03 X10^3/uL; Basophil% 0.3 % (0-1); Eosinophil# 0.15 X10^3/uL; Eosinophils% 1.3 % (0-5); Hematocrit 32.4 % (37-47); Hemoglobin 11.2 g/dL (12.0-15.0); Lymphocyte # 2.06 X10^3/ul (0.83-4.51); Lymphocyte % 18.4 % (19-41); Mean Corp Hgb Conc 34.6 g/dL (32-36); Mean Corpuscular Hgb 31.1 pg (27.0-32.0); Mean Platelet Vol. 10.4 fl (6.2-12.0); Monocyte# 0.79 X10^3/uL; NRBC Flagged by Analyzer 0 % (0-5); Neutrophil # 7.88 X10^3/uL (2.7-7.7); Neutrophil % 70.3 % (47-70); Platelet Count 287 K/mm3 (150-450); RBC Distribution Width CV 13.2 % (11.6-14.6); RBC Distribution Width SD 43.5 fl (35.1-43.9); White Blood Count 11.2 K/mm3 (4.4-11.0)
[2023-02-11 07:27] LABS: Glucose Challenge Gest 1H 50g 121 mg/dL (70-140)
[2023-02-11 08:39] LABS: HIV - WCH Non-Reactive (Nonreactive); Syphilis Antibodies Non-reactive
== END | disposition home or self-care (01) ==
LOC: LAB 06:33
PROVIDERS: PCP Family Medicine; Referring Provider Obstetrics & Gynecology; Visit Provider Obstetrics & Gynecology
DX: O09.91 Supervision of high risk pregnancy, unspecified, first trimester (principal); Z3A.00 Weeks of gestation of pregnancy not specified
CPT/HCPCS: 36415; 82950; 85025; 86703; 86780

== ENCOUNTER → 2023-03-30 | Outpatient (CLI) | payer OTHER, SELFPAY ==
--- NOTE | 2023-03-30 10:52 | US_ITS ---
STUDY: SECOND AND THIRD TRIMESTER OBSTETRICAL ULTRASOUND - LIMITED REASON FOR EXAM: Female, 27 years old growth ultrasound LMP: 07/20/2022. Established due date 04/26/ PRIOR ULTRASOUND: 12/10/2022. TECHNIQUE: Transabdominal. TECHNICAL QUALITY: Adequate. FINDINGS: There is a single intrauterine fetus. The fetus is in a cephalic presentation. There is demonstrated cardiac activity with a heart rate of 155 bpm. There is a normal amniotic fluid volume. The largest amniotic fluid pocket measures 5.3 cm. The amniotic fluid index (TASHA) is 14.63 cm. The placenta is posterior and not low lying. The cervix was not visualized. survey not assessed at this time. BIOMETRY: BPD: 9.88 cm: 40 weeks, 4 days HC: 34.86 cm: 40 weeks, 3 days AC: 32.68 cm: 36 weeks, 4 days FL: 7.12 cm: 36 weeks, 3 days Age by LMP: 36 weeks, 1 days. IGNACIO by LMP: 04/26/2023. age by prior US: 36 weeks, 3 days. IGNACIO by prior US: 04/23/2023. age by current US: 38 weeks, 5 days. IGNACIO by current US: 04/08/2023. Estimated weight: 3200 grams, +/- 480 grams, 83 percentile. US/OB Limited With Biometrics IMPRESSION: Single live intrauterine estimated gestational age 38 weeks 5 days based on composite measurements. TASHA 14.6. Electronically Signed: Margarita Bhatia MD at 17:27 EDT ,
== END | disposition home or self-care (01) ==
PROVIDERS: PCP Family Medicine; Referring Provider Advanced Practice Midwife; Visit Provider Advanced Practice Midwife
DX: O09.91 Supervision of high risk pregnancy, unspecified, first trimester (principal); Z3A.00 Weeks of gestation of pregnancy not specified
CPT/HCPCS: 76816; 87081

== ENCOUNTER 2023-04-08 13:25 | Outpatient (CLI) | payer OTHER, SELFPAY ==
[2023-04-08 13:45] VITALS: BP 119/75; PULSE 78
[2023-04-08 14:12] VITALS: BMI 40.8
--- NOTE | 2023-04-08 16:09 | OB.TRI.HP_ITS ---
HPI - General General Date of Admission: 04/08/23 HPI Narrative KATHLEEN TRUJILLO, is a 27 y/o @ 37 weeks who presents to L&D with the complaint of feeling like her blood pressure is high. She was put on the monitor and bp was in the range of 119/70's. She denies headaches, visual changes , ruq pain, or other pre-e symptoms. Maternal Data Information IGNACIO Calculator Estimated Delivery Date Method Current WG Current Estimate 04/26/23 LMP (Certain) 42w 5d PFSH [facility] Medical History (Updated 05/15/23 @ 16:[address] Cierra Quintanilla, DO) No significant medical problems Pre-eclampsia, Home Medications vitamin#30 30 mg iron-10 mg iron-folic acid 1 mg-omg3 capsule 1 cap PO DAILY 09/22/22 [History Last Taken 04/29/23 22:53] ondansetron 4 mg disintegrating tablet 4 mg PO Q8H #30 tabs 10/29/22 [Rx Last Taken Unknown] aspirin 81 mg chewable tablet (Aspirin Childrens) 1 tab PO DAILY prevent pre-e 04/23/23 [History Last Taken 04/29/23 22:52] Allergy/AdvReac Type Severity Reaction Status Date / Time No Known Allergies Allergy Verified 04/30/23 15:52 Family History Grandmother Uterine cancer Diabetes CVA (cerebral vascular accident) Father Hypertension Surgical History No significant past surgical history Social History Smoking Status: Never smoker alcohol intake: current details: occasionally substance use type: does not use caffeine: Yes what type of physical activity do you participate in: other details: treadmill, beachbody frequency: 5-6 times per week seatbelt use: always do you feel safe at home: Yes 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 Date Name GA/Weeks Outcome Route Bth Weight Gen Labor Lgth Anesthesia Del Locatn Provider FOB 06/22/20 Estuardo 40 live - full term 9lbs 1oz Male non e [facility] Delivery Date: 04/02/20 Last Updated by: Kristen Rose 2 degree laceration Visit Details Expected Delivery Route/Plan Labor Preferences- CB/BF classes: enc labor support person: [] labor intervention preferences: [] pain management options preferred: open to epidural cut cord/dad catch: [] : wants PP control planned: [] discussed possible routes of delivery and associated risks: [] special requests: [] Plans Covid status: discussed Flu vaccine: discussed Tdap vaccine: given Rhogam: na LARC form signed: done movement and labor precautions reviewed. Problem list reviewed and updated with the most current plan of care details and appropriate orders placed. Relevant counseling for the gestational age provided. Continue routine care and follow up unless otherwise noted in visit notes/problem list details OB Flowsheet Initial Weight: Not Recorded Date -?-?-?-?-?-?-?-?-?-?-?-?- EGA Weight BP Urine Prot -?-?-?-?-?-?-?-?-?-?-?-?- Glucose FHR FuHt Pres Dilation -?-?-?-?-?-?-?-?-?-?-?-?- Effaced St Visit Note 09/22/22 -?-?-?-?-?-?-?-?-?-?-?-?- 9w 1d 183 lb 117/81 -?-?-?-?-?-?-?-?-?-?-?-?- 170 -?-?-?-?-?-?-?-?-?-?-?-?- SM- CRL 2.4cm co ns with LMP 10/20/22 -?-?-?-?-?-?-?-?-?-?-?-?- 13w 1d 187 lb 112/77 Negative -?-?-?-?-?-?-?-?-?-?-?-?- Negative 160 -?-?-?-?-?-?-?-?-?-?-?-?- SM no vb crampin g doing well 11/19/22 -?-?-?-?-?-?-?-?-?-?-?-?- 17w 3d 192 lb 8 oz 116/82 Nega tive -?-?-?-?-?-?-?-?-?-?-?-?- Negative 145 -?-?-?-?-?-?-?-?-?-?-?-?- LC-no vb/shaym hollis. AFP discussed and accepted. +sinus infection- on amoxicillin. safe meds reviewed for colds. anatomy scheduled. 12/15/22 -?-?-?-?-?-?-?-?-?-?-?-?- 21w 1d 200 lb 2 oz Negative -?-?-?-?-?-?-?-?-?-?-?-?- Negative 150 21 -?-?-?-?-?-?-?-?-?-?-?-?- LC- no vb/ctx/lo f. +flutters. normal anatomy scan. growth at 84% 01/12/23 -?-?-?-?-?-?-?-?-?-?-?-?- 25w 1d 205 lb 2 oz 113/75 -?-?-?-?-?-?-?-?-?-?-?-?- 150 25 -?-?-?-?-?-?-?-?-?-?-?-?- SM- no vb lof go od fm no regular ctx 02/12/23 -?-?-?-?-?-?-?-?-?-?-?-?- 29w 4d 213 lb 100/67 Negative -?-?-?-?-?-?-?-?-?-?-?-?- Negative 145 -?-?-?-?-?-?-?-?-?-?-?-?- JV- no contracti ons, headaches, or visual changes + fm. had a 130/75 bp yesterday and has some anxiety about her h/o pre-e. precautions discussed. bp to low normal. 02/25/23 -?-?-?-?-?-?-?-?-?-?-?-?- 31w 3d 213 lb 4 oz 112/77 -?-?-?-?-?-?-?-?-?-?-?-?- 130 33 -?-?-?-?-?-?-?-?-?-?-?-?- KW- +FM. no lof/ vb/ctx. LARC done. Pre E precautions reviewed. Growth US for 36 weeks 03/12/23 -?-?-?-?-?-?-?-?-?-?-?-?- 33w 4d 217 lb 8 oz 112/74 Nega tive -?-?-?-?-?-?-?--?-?-?-?-?- Negative 135 34 -?-?-?-?-?-?-?-?-?-?-?-?- JV- no lof, vagi nal bleeding, or dec fm. no complaints. plan us at 36 week 03/30/23 -?-?--?-?-?-?-?-?-?-?-?-?- 36w 1d 219 lb 8 oz 109/72 Trac e -?-?-?-?-?-?-?-?-?-?-?-?- Negative 125 Cephalic 1 -?-?-?-?-?-?-?-?-?-?-?-?- 50 -2 KW- + FM, no lof/vb/ctx. US today. GBS today 04/06/23 -?-?-?-?-?-?-?-?-?-?-?-?- 37w 1d 219 lb 6 oz 112/77 -?-?-?-?-?-?-?-?-?-?-?-?- 140 39 1 -?-?-?-?-?-?-?-?-?-?-?-?- SM- no vb lof go od fm no regular ctx 04/13/23 -?-?-?-?-?-?-?-?-?-?-?-?- 38w 1d 221 lb 2 oz 110/62 Trac e -?-?-?-?-?-?-?-?-?-?-?-?- Negative 40 2 -?-?-?-?-?-?-?-?-?-?-?-?- 60 -2 KW-+FM, no lof/vb/regular contractions. NST for FHT 180-190 on doppler 04/20/23 -?-?-?-?-?-?-?-?-?-?-?-?- 39w 1d 222 lb 126/87 Negative -?-?-?-?-?-?-?-?-?-?-?-?- Negative 140 40 1 -?-?-?-?-?-?-?-?-?-?-?-?- 30 -2 SM- no vb lof good fm no reguar ctx 04/27/23 -?-?-?-?-?-?-?-?-?-?-?-?- 40w 1d 223 lb 130/86 -?-?-?-?-?-?-?-?-?-?-?-?- 140 40 1.5 -?-?-?-?-?-?-?-?-?-?-?-?- 30 50 -2 SM- no vb lof go od fm no reuglar ctx discussed IOL ROS Constitutional Constitutional: Reports systems reviewed and no addt'l complaints, except as documented Gastrointestinal Gastrointestinal: Denies bloating, constipation, cramping, diarrhea, nausea or vomiting Genitourinary Genitourinary: Reports other Details: Denies vaginal odor, vaginal bleeding, or vaginal discharge ; Denies difficulty urinating or flank pain Physical Exam HEENT normocephalic Resp normal respiratory effort and normal air movement no CVA tenderness Extremity normal to inspection General Extremity: edema bilateral (trace ) NST FHR Rate Baby A Baseline: 140 Variability:: Moderate Accelerations:: 15 x 15 Decelerations:: None NST Reactive:: Yes FHR Category:: Category I Assessment & Plan (1) Supervision of normal intrauterine in multigravida: PLAN: Plan no signs of pre-e or hypertension ok to dc to home Charges/Coding Multi Select Codes Visit Charges Office Visit/Consults: 60516 OV L3 Est Urinary/Genital Urinary/Genital CPT Codes: 15262-43 non-stress test Interp
--- NOTE | 2023-04-08 16:09 | OB.TRI.NOTE ---
HPI - General General Date of Admission: 04/08/23 HPI Narrative KATHLEEN TRUJILLO, is a 27 y/o @ 37 weeks who presents to L&D with the complaint of feeling like her blood pressure is high. She was put on the monitor and bp was in the range of 119/70's. She denies headaches, visual changes , ruq pain, or other pre-e symptoms. Maternal Data Information IGNACIO Calculator Estimated Delivery Date Method Current WG Current Estimate 04/26/23 LMP (Certain) 42w 5d [facility]SH [facility] Medical History (Updated 05/15/23 @ 16:[address] Cierra Quintanilla, DO) No significant medical problems Pre-eclampsia, Home Medications vitamin#30 30 mg iron-10 mg iron-folic acid 1 mg-omg3 capsule 1 cap PO DAILY 09/22/22 [History Last Taken 04/29/23 22:53] ondansetron 4 mg disintegrating tablet 4 mg PO Q8H #30 tabs 10/29/22 [Rx Last Taken Unknown] aspirin 81 mg chewable tablet (Aspirin Childrens) 1 tab PO DAILY prevent pre-e 04/23/23 [History Last Taken 04/29/23 22:52] Allergy/AdvReac Type Severity Reaction Status Date / Time No Known Allergies Allergy Verified 04/30/23 15:52 Family History Grandmother Uterine cancer Diabetes CVA (cerebral vascular accident) Father Hypertension Surgical History No significant past surgical history Social History Smoking Status: Never smoker alcohol intake: current details: occasionally substance use type: does not use caffeine: Yes what type of physical activity do you participate in: other details: treadmill, beachbody frequency: 5-6 times per week seatbelt use: always do you feel safe at home: Yes 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 Date Name GA/Weeks Outcome Route Bth Weight Gen Labor Lgth Anesthesia Del Locatn Provider FOB 06/22/20 Estuardo 40 live - full term 9lbs 1oz Male none [facility] MARK Delivery Date: 04/02/20 Last Updated by: Kristen Rose 2 degree laceration Visit Details Expected Delivery Route/Plan Labor Preferences- CB/BF classes: enc labor support person: [] labor intervention preferences: [] pain management options preferred: open to epidural cut cord/dad catch: [] : wants PP control planned: [] discussed possible routes of delivery and associated risks: [] special requests: [] Plans Covid status: discussed Flu vaccine: discussed Tdap vaccine: given Rhogam: na LARC form signed: done movement and labor precautions reviewed. Problem list reviewed and updated with the most current plan of care details and appropriate orders placed. Relevant counseling for the gestational age provided. Continue routine care and follow up unless otherwise noted in visit notes/problem list details OB Flowsheet Initial Weight: Not Recorded Date <del>?</del> EGA Weight BP Urine Prot <del>?</del> Glucose FHR FuHt Pres Dilation <del>?</del> Effaced St Visit Note 09/22/22 <del>?</del> 9w 1d 183 lb 117/81 <del>?</del> 170 <del>?</del> SM- CRL 2.4cm cons with LMP 10/20/22 <del>?</del> 13w 1d 187 lb 112/77 Negative <del>?</del> Negative 160 <del>?</del> SM no vb cramping doing well 11/19/22 <del>?</del> 17w 3d 192 lb 8 oz 116/82 Negative <del>?</del> Negative 145 <del>?</del> LC-no vb/cramping. AFP discussed and accepted. +sinus infection- on amoxicillin. safe meds reviewed for colds. anatomy scheduled. 12/15/22 <del>?</del> 21w 1d 200 lb 2 oz Negative <del>?</del> Negative 150 21 <del>?</del> LC- no vb/ctx/lof. +flutters. normal anatomy scan. growth at 84% 01/12/23 <del>?</del> 25w 1d 205 lb 2 oz 113/75 <del>?</del> 150 25 <del>?</del> SM- no vb lof good fm no regular ctx 02/12/23 <del>?</del> 29w 4d 213 lb 100/67 Negative <del>?</del> Negative 145 <del>?</del> JV- no contractions, headaches, or visual changes + fm. had a 130/75 bp yesterday and has some anxiety about her h/o pre-e. precautions discussed. bp to low normal. 02/25/23 <del>?</del> 31w 3d 213 lb 4 oz 112/77 <del>?</del> 130 33 <del>?</del> KW- +FM. no lof/vb/ctx. LARC done. Pre E precautions reviewed. Growth US for 36 weeks 03/12/23 <del>?</del> 33w 4d 217 lb 8 oz 112/74 Negative <del>?</del> Negative 135 34 <del>?</del> JV- no lof, vaginal bleeding, or dec fm. no complaints. plan us at 36 week 03/30/23 <del>?</del> 36w 1d 219 lb 8 oz 109/72 Trace <del>?</del> Negative 125 Cephalic 1 <del>?</del> 50 -2 KW- + FM, no lof/vb/ctx. US today. GBS today 04/06/23 <del>?</del> 37w 1d 219 lb 6 oz 112/77 <del>?</del> 140 39 1 <del>?</del> SM- no vb lof good fm no regular ctx 04/13/23 <del>?</del> 38w 1d 221 lb 2 oz 110/62 Trace <del>?</del> Negative 40 2 <del>?</del> 60 -2 KW-+FM, no lof/vb/regular contractions. NST for FHT 180-190 on doppler 04/20/23 <del>?</del> 39w 1d 222 lb 126/87 Negative <del>?</del> Negative 140 40 1 <del>?</del> 30 -2 SM- no vb lof good fm no reguar ctx 04/27/23 <del>?</del> 40w 1d 223 lb 130/86 <del>?</del> 140 40 1.5 <del>?</del> 30 50 -2 SM- no vb lof good fm no reuglar ctx discussed IOL ROS Constitutional Constitutional: Reports systems reviewed and no addt'l complaints, except as documented Gastrointestinal Gastrointestinal: Denies bloating, constipation, cramping, diarrhea, nausea or vomiting Genitourinary Genitourinary: Reports other Details: Denies vaginal odor, vaginal bleeding, or vaginal discharge ; Denies difficulty urinating or flank pain Physical Exam HEENT normocephalic Resp normal respiratory effort and normal air movement no CVA tenderness Extremity normal to inspection General Extremity: edema bilateral (trace ) NST FHR Rate Baby A Baseline: 140 Variability:: Moderate Accelerations:: 15 x 15 Decelerations:: None NST Reactive:: Yes FHR Category:: Category I Assessment & Plan (1) Supervision of normal intrauterine in multigravida: PLAN: Plan no signs of pre-e or hypertension ok to dc to home Charges/Coding Multi Select Codes Visit Charges Office Visit/Consults: 25803 OV L3 Est Urinary/Genital Urinary/Genital CPT Codes: 87197-45 non-stress test Interp
== END 2023-04-08 13:50 | disposition home or self-care (01) ==
LOC: WPOUT 13:31 → WP 13:32
PROVIDERS: PCP Family Medicine; Referring Provider Obstetrics & Gynecology; Visit Provider Obstetrics & Gynecology
DX: Z34.93 Encounter for supervision of normal pregnancy, unspecified, third trimester (principal)
CPT/HCPCS: 99221; G0378

== ENCOUNTER 2023-04-22 23:23 | Outpatient (CLI) | payer OTHER, SELFPAY ==
[2023-04-22 23:32] VITALS: BMI 38.4
[2023-04-22 23:40] VITALS: BP 129/87; PULSE 78; TEMP 36.3; O2SAT 98
[2023-04-22 23:57] LABS: Color, Urine Yellow (Yellow); Glucose, Dipstick Normal (Normal); Ketone-Dipstick Negative (Negative); Leukocyte Esterase-Dipstick 25 /ul (Negative); Nitrite-Dipstick Negative (Negative); Occult Blood-Urine Negative /ul (Negative); Protein-Dipstick 15 mg/dl (Negative); Urine Bilirubin Dipstick Negative (Negative); Urine Clarity Clear (Clear); Urine Urobilinogen Normal (Normal); Urine pH 6.5 (5.0 - 8.0)
[2023-04-23 00:17] LABS: ROM Internal Control Test YES-OK TO RESULT pt. (Internal QC); ROM Patient Test Negative (Negative); Record Kit Lot#, ROM+ K1374
--- NOTE | 2023-04-23 08:45 | OB.TRI.PN_ITS ---
Progress Notes Date of Service: 04/22/23 Progress Note: Patient presents for triage evaluation secondary to possible SROM. FHT: 125 Moderate variability reactive no decelerations category I tracing Liberal: irregular Contractions Assessment and plan: Reactive NST, reassuring maternal, negative ROM, and status patient discharged to home to follow-up in office. See problem list details for additional plan information. Laboratory Studies: Laboratory Tests 04/22/23 Range/Units 23:45 Urine Color Yellow (Yellow) Urine Clarity Clear (Clear) Urine pH 6.5 (5.0 - 8.0) Ur Specific [place] 1.010 (1.002-1.030) Urine Protein 15 H (Negative) mg/dl Urine Glucose (UA) Normal (Normal) mg/dl Urine Ketones Negative (Negative) mg/dl Urine Occult Blood Negative (Negative) /ul Urine Nitrite Negative (Negative) Urine Bilirubin Negative (Negative) mg/dL Urine Urobilinogen Normal (Normal) mg/dl Ur Leukocyte Esterase 25 H (Negative) /ul Vag Amniotic Fld Detect Negative (Negative) Charges/Coding Multi Select Codes Urinary/Genital Urinary/Genital CPT Codes: 94470-68 non-stress test Interp Assessment & Plan (1) : QUALIFIERS: Weeks of gestation: 39 weeks Qualified Code(s): Z3A.39 - 39 weeks gestation of COMMENT: GBS neg, 36 week US at 84%, anatomy nl (87%), NIPT low risk, reviewed carrier screening. (2) Supervision of high risk in first trimester: COMMENT: PRR IGNACIO 04/26/23, bert pineda. : Rick (3) Obesity affecting : COMMENT: BMI 31 (4) Pre-eclampsia, : COMMENT: previous , recommend 81 mg ASA
== END 2023-04-23 00:45 | disposition home or self-care (01) ==
LOC: WPOUT 23:26 → WP 23:27
PROVIDERS: PCP Family Medicine; Referring Provider Advanced Practice Midwife; Visit Provider Advanced Practice Midwife
DX: O99.213 Obesity complicating pregnancy, third trimester (principal); Z3A.39 39 weeks gestation of pregnancy
CPT/HCPCS: 59025; 59050; 81002; 84112; 87086; 87088

== ENCOUNTER 2023-04-30 13:42 | Inpatient (IN) | payer OTHER, SELFPAY ==
[2023-04-30] VITALS (39 sets, daily range): BP systolic 108–135; BP diastolic 56–87; PULSE 64–100; TEMP 36.4–37.1; O2SAT 94–100; BMI 38.9
[2023-04-30 13:38] LABS: ROM Internal Control Test YES-OK TO RESULT pt. (Internal QC); ROM Patient Test POSITIVE (Negative)
[2023-04-30] MEDS: Lactated Ringers 1,000 ML 50 ML IV (14:45)
[2023-04-30] MEDS: Oxytocin 15 Units/NS 250ml 15 UNITS/250 ML IV.SOLN 2 UNITS IV (14:56)
[2023-04-30 15:02] LABS: Absolute Lymphocyte Count 1.74 X10^3/uL (0.83-4.51); Absolute Neutrophil Count 7.6 X10^3/uL (2.0-7.7); Basophil# 0.03 X10^3/uL; Basophil% 0.3 % (0-1); Eosinophil# 0.07 X10^3/uL; Eosinophils% 0.7 % (0-5); Hemoglobin 10.8 g/dL (12.0-15.0); Lymphocyte # 1.74 X10^3/ul (0.83-4.51); Lymphocyte % 16.6 % (19-41); Mean Corp Hgb Conc 33.8 g/dL (32-36); Mean Corpuscular Hgb 30.3 pg (27.0-32.0); Mean Corpuscular Volume 89.9 fL (81-99); Mean Platelet Vol. 10.9 fl (6.2-12.0); Monocyte# 0.82 X10^3/uL; Monocyte% 7.8 % (0-10); NRBC Flagged by Analyzer 0 % (0-5); Neutrophil # 7.63 X10^3/uL (2.7-7.7); Neutrophil % 72.7 % (47-70); Platelet Count 263 K/mm3 (150-450); RBC Distribution Width CV 13.2 % (11.6-14.6); RBC Distribution Width SD 43.1 fl (35.1-43.9); Red Blood Count 3.56 M/mm3 (4.2-5.4); White Blood Count 10.5 K/mm3 (4.4-11.0)
[2023-04-30 16:21] LABS: Syphilis Antibodies Non-reactive
[2023-04-30] MEDS: Acetaminophen 500 MG Tablet PO (18:49)
[2023-04-30] MEDS: LACTATED RINGERS 500 ML 999 ML IV (19:26)
[2023-04-30] MEDS: fentaNYL-bupivacaine (epidural) 100 ML BAG EPIDURAL (20:25)
[2023-04-30] MEDS: Lactated Ringers 1,000 ML 200 ML IV (22:03)
[2023-05-01] VITALS (20 sets, daily range): BP systolic 112–131; BP diastolic 59–78; PULSE 65–93; RESP 16–18; TEMP 36.7–37.5; O2SAT 96–97
[2023-05-01] MEDS: fentaNYL-bupivacaine (epidural) 100 ML BAG EPIDURAL (00:46)
--- NOTE | 2023-05-01 01:37 | HP.PCM.OB_ITS ---
HPI - General General Date of Admission: 04/30/23 HPI Narrative KATHLEEN TRUJILLO, is a 27 F who presents with ROM 1 cm irregular ctx good fm clear lof Maternal Data Information IGNACIO Calculator Estimated Delivery Date Method Current WG Current Estimate 04/26/23 LMP (Certain) 40w 5d PFSH [facility] Medical History No significant medical problems Pre-eclampsia, Home Medications vitamin#30 30 mg iron-10 mg iron-folic acid 1 mg-omg3 capsule 1 cap PO DAILY 09/22/22 [History Last Taken 04/29/23 22:53] ondansetron 4 mg disintegrating tablet 4 mg PO Q8H #30 tabs 10/29/22 [Rx Last Taken Unknown] aspirin 81 mg chewable tablet (Aspirin Childrens) 1 tab PO DAILY prevent pre-e 04/23/23 [History Last Taken 04/29/23 22:52] Allergy/AdvReac Type Severity Reaction Status Date / Time No Known Allergies Allergy Verified 04/30/23 15:52 Family History Grandmother Uterine cancer Diabetes CVA (cerebral vascular accident) Father Hypertension Surgical History No significant past surgical history Social History Smoking Status: Never smoker alcohol intake: current details: occasionally substance use type: does not use caffeine: Yes what type of physical activity do you participate in: other details: treadmill, beachbody frequency: 5-6 times per week seatbelt use: always do you feel safe at home: Yes additional social history: - [employer] 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 History 2 Elective abortions Hx Para 1 Spontaneous abortions Hx # Term Pregnancies Ectopic pregnancies Hx # Pregnancies Multiple births # of living children 1 Past Pregnancies Del. Date Name GA/Weeks Outcome Route Bth Weight Infant Gen Labor Lgth Anesthesia Del Locatn Provider FOB 04/02/20 Bert 40 live - full term 9lbs 1oz Male non e [facility] MARK Delivery Date: 04/02/20 Last Updated by: Kristen Rose 2 degree laceration Visit Details Expected Delivery Route/Plan Labor Preferences- CB/BF classes: enc labor support person: [] labor intervention preferences: [] pain management options preferred: open to epidural cut cord/dad catch: [] : wants PP control planned: [] discussed possible routes of delivery and associated risks: [] special requests: [] Plans Covid status: discussed Flu vaccine: discussed Tdap vaccine: given Rhogam: na LARC form signed: done movement and labor precautions reviewed. Problem list reviewed and updated with the most current plan of care details and appropriate orders placed. Relevant counseling for the gestational age provided. Continue routine care and follow up unless otherwise noted in visit notes/problem list details OB Flowsheet Initial Weight: Not Recorded Date -?-?-?-?-?-?-?-?-?-?-?-?- EGA Weight BP Urine Prot -?-?-?-?-?-?-?-?-?-?-?-?- Glucose FHR FuHt Pres Dilation -?-?-?-?-?-?-?-?-?-?-?-?- Effaced St Visit Note 09/22/22 -?-?-?-?-?-?-?-?-?-?-?-?- 9w 1d 183 lb 117/81 -?-?-?-?-?-?-?-?-?-?-?-?- 170 -?-?-?-?-?-?-?-?-?-?-?-?- SM- CRL 2.4cm co ns with LMP 10/20/22 -?-?-?-?-?-?-?-?-?-?-?-?- 13w 1d 187 lb 112/77 Negative -?-?-?-?-?-?-?-?-?-?-?-?- Negative 160 -?-?-?-?-?-?-?-?-?-?-?-?- SM no vb crampin g doing well 11/19/22 -?-?-?-?-?-?-?-?-?-?-?-?- 17w 3d 192 lb 8 oz 116/82 Nega tive -?-?-?-?-?-?-?-?-?-?-?-?- Negative 145 -?-?-?-?-?-?-?-?-?-?-?-?- LC-no vb/crampin g. AFP discussed and accepted. +sinus infection- on amoxicillin. safe meds reviewed for colds. anatomy scheduled. 12/15/22 -?-?-?-?-?-?-?-?-?-?-?-?- 21w 1d 200 lb 2 oz Negative -?-?-?-?-?-?-?-?-?-?-?-?- Negative 150 21 -?-?-?-?-?-?-?-?-?-?-?-?- LC- no vb/ctx/lo f. +flutters. normal anatomy scan. growth at 84% 01/12/23 -?-?-?-?-?-?-?-?-?-?-?-?- 25w 1d 205 lb 2 oz 113/75 -?-?-?-?-?-?-?-?-?-?-?-?- 150 25 -?-?-?-?-?-?-?-?-?-?-?-?- SM- no vb lof go od fm no regular ctx 02/12/23 -?-?-?-?-?-?-?-?-?-?-?-?- 29w 4d 213 lb 100/67 Negative -?-?-?-?-?-?-?-?-?-?-?-?- Negative 145 -?-?-?-?-?-?-?-?-?-?-?-?- JV- no contracti ons, headaches, or visual changes + fm. had a 130/75 bp yesterday and has some anxiety about her h/o pre-e. precautions discussed. bp to low normal. 02/25/23 -?-?-?-?-?-?-?-?-?-?-?-?- 31w 3d 213 lb 4 oz 112/77 -?-?-?-?-?-?-?-?-?-?-?-?- 130 33 -?-?-?-?-?-?-?-?-?-?-?-?- KW- +FM. no lof/ vb/ctx. LARC done. Pre E precautions reviewed. Growth US for 36 weeks 03/12/23 -?-?-?-?-?-?-?-?-?-?-?-?- 33w 4d 217 lb 8 oz 112/74 Nega tive -?-?-?--?-?-?-?-?-?-?-?-?- Negative 135 34 -?-?-?-?-?-?-?-?-?-?-?-?- JV- no lof, vagi nal bleeding, or dec fm. no complaints. plan us at 36 week 03/30/23 -?-?-?-?-?-?-?-?-?-?-?-?- 36w 1d 219 lb 8 oz 109/72 Trac e -?-?-?-?-?-?-?-?-?-?-?-?- Negative 125 Cephalic 1 -?-?-?-?-?-?-?-?-?-?-?-?- 50 -2 KW- + FM, no lof/vb/ctx. US today. GBS today 04/06/23 -?-?-?-?-?-?-?-?-?-?-?-?- 37w 1d 219 lb 6 oz 112/77 -?-?-?-?-?-?-?-?-?-?-?-?- 140 39 1 -?-?-?-?-?-?-?-?-?-?-?-?- SM- no vb lof go od fm no regular ctx 04/13/23 -?-?-?-?-?-?-?-?-?-?-?-?- 38w 1d 221 lb 2 oz 110/62 Trac e -?-?-?-?-?-?-?-?-?-?-?-?- Negative 40 2 -?-?-?-?-?-?-?-?-?-?-?-?- 60 -2 KW-+FM, no lof/vb/regular contractions. NST for FHT 180-190 on doppler 04/20/23 -?-?-?-?-?-?-?-?--?-?-?-?- 39w 1d 222 lb 126/87 Negative -?-?-?-?-?-?-?-?-?-?-?-?- Negative 140 40 1 -?-?-?-?-?-?-?-?-?-?-?-?- 30 -2 SM- no vb lof good fm no reguar ctx 04/27/23 -?-?-?-?-?-?-?-?-?-?-?-?- 40w 1d 223 lb 130/86 -?-?-?-?-?-?-?-?-?-?-?-?- 140 40 1.5 -?-?-?-?-?-?-?-?-?-?-?-?- 30 50 -2 SM- no vb lof go od fm no reuglar ctx discussed IOL NST FHR Rate Baby A Baseline: 140 Variability:: Moderate Accelerations:: 15 x 15 Decelerations:: None NST Reactive:: Yes FHR Category:: Category I Uterine Activity:: q3-5 irregular ROS Constitutional Constitutional: Reports systems reviewed and no addt'l complaints, except as documented ENT HEENT: Reports systems reviewed and no addt'l complaints, except as documented Cardiovascular Cardiovascular: Reports systems reviewed and no addt'l complaints, except as documented Respiratory/Chest Respiratory/Chest: Reports systems reviewed and no addt'l complaints, except as documented Gastrointestinal Gastrointestinal: Reports systems reviewed and no addt'l complaints, except as documented and nausea; Denies abdominal pain Genitourinary Genitourinary: Reports systems reviewed and no addt'l complaints, except as documented, contractions Details: present and frequency (regular ) and movement Details: present Musculoskeletal Musculoskeletal: Reports systems reviewed and no addt'l complaints, except as documented Integumentary Integumentary: Reports as per HPI Neurologic Neurologic: Reports systems reviewed and no addt'l complaints, except as documented Endocrine Endocrinology: Reports systems reviewed and no addt'l complaints, except as documented Vital Signs Vital Signs Vital Signs: 04/30/23 13:11 04/30/23 13:11 04/30/23 13:13 Temperature Temperature Source Pulse Rate 82 84 Blood Pressure 122/72 H BP Systolic 122 BP Diastolic 72 Pulse Ox 04/30/23 13:13 04/30/23 13:11 04/30/23 13:11 Temperature Temperature Source Temporal Pulse Rate 96 Blood Pressure BP Systolic BP Diastolic Pulse Ox 98 04/30/23 13:11 04/30/23 13:11 04/30/23 15:12 Temperature 98.2 F Temperature Source Pulse Rate Blood Pressure 124/77 H BP Systolic 124 BP Diastolic 77 Pulse Ox 98 04/30/23 15:12 04/30/23 15:12 04/30/23 15:06 Temperature Temperature Source Temporal Pulse Rate 77 Blood Pressure BP Systolic BP Diastolic Pulse Ox 98 04/30/23 15:06 04/30/23 16:37 04/30/23 16:37 Temperature 97.9 F Temperature Source Pulse Rate 78 Blood Pressure 122/75 H BP Systolic 122 BP Diastolic 75 Pulse Ox 04/30/23 16:38 04/30/23 16:38 04/30/23 16:38 Temperature Temperature Source Temporal Pulse Rate 92 Blood Pressure BP Systolic BP Diastolic Pulse Ox 99 04/30/23 16:38 04/30/23 17:03 04/30/23 17:03 Temperature 98.1 F Temperature Source Pulse Rate 72 Blood Pressure 123/79 H BP Systolic 123 BP Diastolic 79 Pulse Ox 04/30/23 17:03 04/30/23 17:03 04/30/23 17:55 Temperature Temperature Source Pulse Rate 75 Blood Pressure 120/70 BP Systolic 120 BP Diastolic 70 Pulse Ox 99 04/30/23 17:55 04/30/23 17:54 04/30/23 17:54 Temperature 98.7 F Temperature Source Pulse Rate 71 Blood Pressure BP Systolic BP Diastolic Pulse Ox 98 04/30/23 17:54 04/30/23 18:46 04/30/23 18:46 Temperature Temperature Source Temporal Pulse Rate 80 Blood Pressure 121/81 H BP Systolic 121 BP Diastolic 81 Pulse Ox 04/30/23 18:46 04/30/23 18:46 04/30/23 19:55 Temperature 98.1 F Temperature Source Temporal Temporal Pulse Rate Blood Pressure BP Systolic BP Diastolic Pulse Ox 04/30/23 19:56 04/30/23 19:56 04/30/23 19:55 Temperature Temperature Source Pulse Rate 80 Blood Pressure 121/73 H BP Systolic 121 BP Diastolic 73 Pulse Ox 100 04/30/23 19:55 04/30/23 20:00 04/30/23 20:00 Temperature 98.0 F Temperature Source Pulse Rate 90 Blood Pressure BP Systolic BP Diastolic Pulse Ox 100 04/30/23 20:05 04/30/23 20:05 04/30/23 20:09 Temperature Temperature Source Pulse Rate 89 Blood Pressure 135/87 H BP Systolic 135 BP Diastolic 87 Pulse Ox 100 04/30/23 20:09 04/30/23 20:10 04/30/23 20:10 Temperature Temperature Source Pulse Rate 80 81 Blood Pressure BP Systolic BP Diastolic Pulse Ox 100 04/30/23 20:13 04/30/23 20:13 04/30/23 20:15 Temperature Temperature Source Pulse Rate 86 98 Blood Pressure 128/82 H BP Systolic 128 BP Diastolic 82 Pulse Ox 04/30/23 20:15 04/30/23 20:16 04/30/23 20:16 Temperature Temperature Source Pulse Rate 90 Blood Pressure BP Systolic BP Diastolic Pulse Ox 99 94 04/30/23 20:18 04/30/23 20:18 04/30/23 20:20 Temperature Temperature Source Pulse Rate 88 92 Blood Pressure 128/82 H BP Systolic 128 BP Diastolic 82 Pulse Ox 04/30/23 20:20 04/30/23 20:23 04/30/23 20:23 Temperature Temperature Source Pulse Rate 88 Blood Pressure 131/83 H BP Systolic 131 BP Diastolic 83 Pulse Ox 99 04/30/23 20:25 04/30/23 20:25 04/30/23 20:28 Temperature Temperature Source Pulse Rate 85 Blood Pressure 132/73 H BP Systolic 132 BP Diastolic 73 Pulse Ox 98 04/30/23 20:28 04/30/23 20:30 04/30/23 20:30 Temperature Temperature Source Pulse Rate 76 87 Blood Pressure BP Systolic BP Diastolic Pulse Ox 99 04/30/23 20:33 04/30/23 20:33 04/30/23 20:35 Temperature Temperature Source Pulse Rate 75 86 Blood Pressure 126/69 H BP Systolic 126 BP Diastolic 69 Pulse Ox 04/30/23 20:35 04/30/23 20:39 04/30/23 20:39 Temperature Temperature Source Pulse Rate 80 Blood Pressure 125/77 H BP Systolic 125 BP Diastolic 77 Pulse Ox 99 04/30/23 20:40 04/30/23 20:40 04/30/23 20:43 Temperature Temperature Source Pulse Rate 100 Blood Pressure 121/73 H BP Systolic 121 BP Diastolic 73 Pulse Ox 100 04/30/23 20:43 04/30/23 20:45 04/30/23 20:45 Temperature Temperature Source Pulse Rate 87 79 Blood Pressure BP Systolic BP Diastolic Pulse Ox 99 04/30/23 20:48 04/30/23 20:48 04/30/23 20:50 Temperature Temperature Source Temporal Pulse Rate 82 Blood Pressure 114/56 L BP Systolic 114 BP Diastolic 56 Pulse Ox 04/30/23 20:50 04/30/23 20:50 04/30/23 20:50 Temperature 98.2 F Temperature Source Pulse Rate 87 Blood Pressure BP Systolic BP Diastolic Pulse Ox 100 04/30/23 20:53 04/30/23 21:26 04/30/23 21:26 Temperature Temperature Source Pulse Rate 64 Blood Pressure 113/58 L 108/60 BP Systolic 113 108 BP Diastolic 58 60 Pulse Ox 04/30/23 21:57 04/30/23 21:57 04/30/23 21:57 Temperature Temperature Source Temporal Pulse Rate 85 Blood Pressure 119/74 BP Systolic 119 BP Diastolic 74 Pulse Ox 04/30/23 21:57 04/30/23 22:01 04/30/23 22:01 Temperature 97.5 F L Temperature Source Pulse Rate 76 Blood Pressure BP Systolic BP Diastolic Pulse Ox 98 04/30/23 22:43 04/30/23 22:43 04/30/23 22:43 Temperature Temperature Source Temporal Pulse Rate 71 Blood Pressure 112/63 BP Systolic 112 BP Diastolic 63 Pulse Ox 04/30/23 22:43 04/30/23 22:43 04/30/23 23:44 Temperature 98.3 F Temperature Source Pulse Rate Blood Pressure 120/73 BP Systolic 120 BP Diastolic 73 Pulse Ox 98 04/30/23 23:44 04/30/23 23:44 04/30/23 23:44 Temperature Temperature Source Temporal Pulse Rate 81 70 Blood Pressure BP Systolic BP Diastolic Pulse Ox 04/30/23 23:44 04/30/23 23:44 05/01/23 00:36 Temperature 98.3 F Temperature Source Pulse Rate Blood Pressure 115/65 BP Systolic 115 BP Diastolic 65 Pulse Ox 98 05/01/23 00:36 05/01/23 00:36 05/01/23 00:36 Temperature Temperature Source Pulse Rate 79 89 Blood Pressure BP Systolic BP Diastolic Pulse Ox 97 05/01/23 00:36 05/01/23 00:36 05/01/23 01:33 Temperature 99.5 F H Temperature Source Temporal Pulse Rate Blood Pressure 131/75 H BP Systolic 131 BP Diastolic 75 Pulse Ox 05/01/23 01:33 Temperature Temperature Source Pulse Rate 83 Blood Pressure BP Systolic BP Diastolic Pulse Ox Weight Weight: 227 lb 1.218 oz Body Mass Index (BMI) 38.9 Physical Exam Const alert, oriented x3 and healthy appearing Constitutional Narrative: uncomfortable with contractions HEENT normocephalic and moist oral mucous membranes Head and Scalp: atraumatic Neck full ROM, no lymphadenopathy, supple and thyroid normal General: trachea midline Thyroid: thyroid normal Lymph Lymphatic: no lymphadenopathy noted Chest inspection of chest normal Resp normal respiratory effort Cardio regular rate GI normal to inspection, nondistended, normoactive bowel sounds, soft to palpation and non-tender Inspection: gravid external exam normal Bimanual Exam - Vag & Uterus: uterus non-tender Manual OB Exam: estimated gestational size appropriate, presentation cephalic, dilated, effaced and station Extremity normal to inspection General Extremity: Negative for edema Skin no rashes or lesions noted Neuro deep tendon reflexes 2+ bilaterally Motor Exam: strength 5/5 throughout and clonus absent Psych mental status grossly normal Labs Labs Labs: Blood Type O POSITIVE Antibody Screen NEGATIVE Hct 32.0 % (37-47) L Hgb 10.8 g/dL (12.0-15.0) L Obstetrics US Syphilis Total Ab Non-reactive Rubella IgG Antibody Reactive (Nonreactive) Hep Bs Antigen Non-Reactive (Nonreactive) Chlamydia DNA (ARY) Negative (Negative) Neisseria gonorrhoeae DNA (ARY) Negative (Negative) HIV 1&2 Antibody Non-Reactive (Nonreactive) Glucose 1 Hr 50 gm 121 mg/dL (70-140) Rhogam given: No Miscellaneous Test Assessment & Plan (1) : QUALIFIERS: Weeks of gestation: 40 weeks Qualified Code(s): Z3A.40 - 40 weeks gestation of COMMENT: GBS neg, 36 week US at 84%, anatomy nl (87%), NIPT low risk, reviewed carrier screening. (2) Pre-eclampsia, : COMMENT: previous , recommend 81 mg ASA (3) Supervision of high risk in first trimester: COMMENT: PRR IGNACIO 04/26/23, boybert. : Rick (4) Obesity affecting : COMMENT: BMI 31 (5) SROM (spontaneous rupture of membranes): PLAN: Plan Patient presents IAL, plan expectant management for , pitocin GBS neg. Management of any complications: none I have reviewed the [facility] and made any clinically relevant updates.
--- NOTE | 2023-05-01 01:40 | OP.PCM_ITS ---
Assessment & Plan (1) Pre-eclampsia, : COMMENT: previous , recommend 81 mg ASA (2) : QUALIFIERS: Weeks of gestation: 40 weeks Qualified Code(s): Z3A.40 - 40 weeks gestation of COMMENT: GBS neg, 36 week US at 84%, anatomy nl (87%), NIPT low risk, reviewed carrier screening. (3) Supervision of high risk in first trimester: COMMENT: PRR IGNACIO 04/26/23, bert pineda. : Rick (4) SROM (spontaneous rupture of membranes): (5) Obesity affecting : COMMENT: BMI 31 (6) Vaginal delivery: COMMENT: SM IAL SROM 40 boy [place] Maternal Data Information IGNACIO Calculator Estimated Delivery Date Method Current WG Current Estimate 04/26/23 LMP (Certain) 40w 5d Vaginal Delivery Operative Information Date of Procedure: 05/01/23 Pre-Operative Diagnosis: see a/p diagnoses Post-Operative Diagnosis: same Surgery / Procedure Performed: Spontaneous Vaginal Delivery Type of Anesthesia: Epidural Special Medications: none Estimated Blood Loss: 300 Fluids Replaced: crystalloid Findings Description of Procedure: Patient began pushing and delivered the head in the VIGNESH presentation. The head was delivered atraumatically . The anterior and posterior shoulders delivered without complication followed by the rest of the infant and the infant was placed on the maternal abdomen. Delayed cord clamping was employed for approximately 60 seconds. Cord was clamped and cut and gentle traction was applied to the cord and the placenta delivered spontaneously immediately following it was noted to be intact with three-vessel cord. The perineum and vagina were inspected and noted to have a second degree perineal laceration which was repaired in the usual fashion with 3-0 vicryl rapide. . EBL was 300. Patient and infant tolerated delivery well. Amniotic Fluid Description: Clear Placental Delivery Description: Spontaneous Placenta Disposition: [facility] Cord Vessel Description: 3 Vessels Cord Entanglement: None Delayed Cord Clamping: Yes Post Vaginal Delivery Medications Given After Delivery: IV Pitocin Episiotomy Description: None Complication Complications: None Procedures Urinary/Genital [id number]: [id number] Vaginal Delivery [facility]
--- NOTE | 2023-05-01 01:42 | DCINST_ITS ---
Discharge Instructions Diet Discharge Diet: No restrictions Activity Discharge Activity: Return to Normal Activity, May Not Drive (while taking narcotic pain medications.) and May Shower May resume sexual activity in: 4-6 weeks Dressing / Incision Call your doctor if your incision/area has: Continuous Slow Oozing, Sudden Increased Bleeding, Increased Pain/ Swelling, Increased Redness and Foul Smelling Discharge Follow Up Care Please Follow Up With: Lois Shaw MD When: Call [phone] to make an appointment with your doctor in 6 weeks. If you had elevated blood pressure or 4th degree laceration, you will need to be seen in 2 weeks. Test Results: Test results from this visit will be discussed in further detail at your follow- up appointment, if applicable. Discharge Plan Admission Admit Date/Time: 04/30/23 13:42 Attending Provider: Lois Shaw Primary Care Provider: Jose Manuel Levy Discharge Orders/Prescriptions Prescriptions: No Action PNV #[id number] 30 mg iron-10 mg iron-1 mg capsule 1 cap PO DAILY aspirin [Aspirin Childrens] 81 mg tablet,chewable 1 tab PO DAILY ondansetron 4 mg tablet,disintegrating 4 mg PO Q8H Qty: 30 2RF Hold Instructions: Order Changed Referrals / Follow Up: Jose Manuel Levy MD [Primary Care Provider] -
[2023-05-01] MEDS: Oxytocin 15 Units/NS 250ml 15 UNITS/250 ML IV.SOLN 83 UNITS IV (01:52)
[2023-05-01] MEDS: Naproxen 500 MG Tablet PO ×3 (02:23→20:13)
[2023-05-01] MEDS: 0.9% Saline Lock 10 ML Syringe IV (04:55)
[2023-05-01] MEDS: Acetaminophen 500 MG Tablet 1000 MG PO ×3 (08:26→22:44)
[2023-05-02] VITALS (7 sets, daily range): BP systolic 117–127; BP diastolic 73–84; PULSE 64–82; RESP 16; TEMP 36.6–37.1; O2SAT 97–98
--- NOTE | 2023-05-02 05:36 | PCM.PN.OB ---
Subjective Subjective Patient doing well without complaints. Tolerating PO. Ambulating and voiding without difficulty. Feeding well. Denies chest pain, shortness of breath, calf pain/swelling, fevers, chills, lightheadedness. Objective Data Objective Data Vital Signs: Vital Signs Temp Pulse Resp BP Pulse Ox O2 Del Method 97.8 F 81 16 122/75 H 98 Room Air 05/02/23 04:48 05/02/23 04:48 05/02/23 04:48 05/02/23 04:48 05/02/23 04:48 05/02/23 04:48 Oxygen Delivery Method Room Air Weight: 227 lb 1.218 oz Body Mass Index (BMI) 38.9 Intake & Output: Intake and Output for Last 24 Hours 04/30/23 05/01/23 05/02/23 23:59 23:59 23:59 Intake Total 1175.47 / 1175.47 1145.37 / 1145.37 Output Total 300 / 300 1625 / 1625 Balance 875.47 / 875.47 -479.63 / -479.63 Lab / Micro Data 04/30/23 14:45 ROS Constitutional Constitutional: Denies chills, fatigue, fever(s), poor appetite or weakness Eyes Eyes: Denies blurry vision, change in vision, seeing flashes or spots in vision ENT HEENT: Denies dizziness, headache(s), loss taste/smell or sore throat Cardiovascular Cardiovascular: Denies chest pain, dizziness, dyspnea, irregular heart rhythm, palpitations or rapid heart rate Respiratory/Chest Respiratory/Chest: Denies chest tightness, cough, dyspnea or breast pain Gastrointestinal Gastrointestinal: Denies abdominal pain, constipation or vomiting Genitourinary Genitourinary: Denies dysuria or flank pain Musculoskeletal Musculoskeletal: Denies difficulty walking, joint pain, limited range of motion or numbness Neurologic Neurologic: Denies abnormal movements, abnormal speech, dizziness, numbness, seizure-like activity or syncope Psychiatric Psychiatric: Denies anxiety, behavioral changes, change in appetite, confusion, depression or suicidal thoughts Physical Exam Const alert, oriented x3 and no apparent distress General Appearance: cooperative and comfortable Resp normal respiratory effort Cardio regular rate GI normal to inspection, nondistended, normoactive bowel sounds GI Narrative: uterus is firm below umbilicus Palpation: soft Back/Spine no CVA tenderness and thoraco-lumbar ROM normal Extremity normal to inspection, no clubbing, cyanosis or edema, no calf tenderness and no pedal edema Psych mental status grossly normal, thought process normal, cooperative, affect normal, speech normal, activity/motor behavior normal, denies homicidal ideation and denies suicidal ideation Assessment & Plan (1) Vaginal delivery: COMMENT: JAYDON BENDER IAL SROM 40 boy Bradley PLAN: s/p PPD # 1 1. routine post delivery care 2. breast feeding- support given 3. rh positive 4. rubella immune 5. plan for dc to home later today
[2023-05-02] MEDS: Acetaminophen 500 MG Tablet 1000 MG PO (05:58)
== END 2023-05-02 12:55 | disposition home or self-care (01) | DRG 807 ==
LOC: WPOUT 13:43 → WP 05-01 01:39
PROVIDERS: Admitting Provider Obstetrics & Gynecology; PCP Family Medicine; Referring Provider Obstetrics & Gynecology; Visit Provider Obstetrics & Gynecology
DX: O42.92 Full-term premature rupture of membranes, unspecified as to length of time between rupture and onset of labor (principal); Z37.0 Single live birth; O70.1 Second degree perineal laceration during delivery; O99.214 Obesity complicating childbirth; Z3A.40 40 weeks gestation of pregnancy; Z79.82 Long term (current) use of aspirin; Z87.59 Personal history of other complications of pregnancy, childbirth and the puerperium
CPT/HCPCS: 59025; 59050; 84112; 85025; 86780; 86850; 86900; 86901; 99221; J7120; A4216; G0378